=== PATIENT | male | born 1985 | race Caucasian/White ===

== ENCOUNTER 2018-08-20 09:34 | Inpatient (IN) ==
[2018-08-20] MEDS: Sod Chloride 0.9% Inj 1,000 ML IV.CONT SCH (09:45)
--- NOTE | 2018-08-20 10:13 | CT ---
EXAM DATE: 08/20/2018 10:04 AM EST AGE/SEX: 33 years / Male INDICATIONS: Stroke alert, right facial droop and right upper extremity weakness. CLINICAL DATA: This is the patient's initial encounter. Patient reports that signs and symptoms have been present for 1 day and indicates a pain score of Nonresponsive. MEDICAL/SURGICAL HISTORY: Non-responsive. Non-responsive. RADIATION DOSE: 5635 CTDI (mGy) COMPARISON: [facility] [place], [place] CEREBRAL PERF W CONTRAST W 3D, 08/20/2018. . TECHNIQUE: CT of the head without contrast. Using automated exposure control and adjustment of the mA and/or kV according to patient size, radiation dose was kept as low as reasonably achievable to ob tain optimal diagnostic quality images. DICOM format image data is available electronically for revi ew and comparison. FINDINGS: The patient has fairly well-defined parenchymal edema in the left frontal region consistent with evol ving left MCA stroke. There is no evidence of hemorrhage at present. The contralateral right hemisphe re is grossly intact. The posterior fossa and brainstem structures are unremarkable. Ventricles are s ymmetric and normal. No brain shift is evident. The extracranial structures are benign and intact. CONCLUSION: Evolving edema in the left MCA territory. Report was called by [Jaleesa Penny at 1008 hours ] Electronically signed by: Girish Lazcano MD 08/20/2018 10:12 AM EST
[2018-08-20] MEDS ORDERED: Acetaminophen 325 MG Tablet PO PRN (10:28)
[2018-08-20] MEDS ORDERED: Bisacodyl 10 MG Supp RECTAL PRN (10:28)
--- NOTE | 2018-08-20 10:39 | CT ---
EXAM DATE: 08/20/2018 10:32 AM EST AGE/SEX: 33 years / Male INDICATIONS: Stroke alert, right facial droop and right upper extremity weakness. CLINICAL DATA: This is the patient's initial encounter. Patient reports that signs and symptoms have been present for 1 day and indicates a pain score of Nonresponsive. MEDICAL/SURGICAL HISTORY: Non-responsive. Non-responsive. RADIATION DOSE: 10.12 CTDI (mGy) ; Combined studies [place] [facility] [place] W 3D, 08/20/2018. . TECHNIQUE: Volumetric scanning was performed using a multi-row detector CT scanner during bolus infu yue of 60 ml Visipaque 320 (iodixanol) nonionic water-soluble contrast as a cumulative dose for mul tiple exams. The data was post processed with a variety of visualization algorithms including full volume maximum intensity projection, multi-planar sliding thin slab reformation, curved planar reform ation, and surface rendering techniques. Using automated exposure control and adjustment of the mA a nd/or kV according to patient size, radiation dose was kept as low as reasonably achievable to obtain optimal diagnostic quality images. DICOM format image data is available electronically for review a nd comparison. FINDINGS: Poor quality examination with poor arterial contrast opacification and quantum mottle. The left MCA t runk is intact. Branch vessel abnormalities cannot be excluded. The anterior cerebrals appear patent. CONCLUSION: 1. Poor quality CTA examination. 2. Based upon other factors, the patient would not be a candidate for intra-arterial intervention Electronically signed by: Girish Lazcano MD 08/20/2018 10:37 AM EST
--- NOTE | 2018-08-20 10:41 | XR ---
EXAM DATE: 08/20/2018 10:35 AM EST AGE/SEX: 33 years / Male INDICATIONS: Stroke alert, short of breath, extremity weakness, facial droop CLINICAL DATA: This is the patient's initial encounter. Patient reports that signs and symptoms have been present for 1 day and indicates a pain score of 0/10. MEDICAL/SURGICAL HISTORY: . smoker None. COMPARISON: No prior exams available for comparison. FINDINGS: A single AP view of the chest demonstrates the lungs to be symmetrically aerated without evidence of mass, infiltrate or effusion. The cardiomediastinal contours are unremarkable. Osseous structures a re intact. CONCLUSION: Negative examination. Electronically signed by: Bon Ramires MD 08/20/2018 10:40 AM EST
--- NOTE | 2018-08-20 10:55 | ED ---
HPI General Chief Complaint: Stroke Alert Stated Complaint: Medical Complaint Time Seen by Provider: 08/20/18 09:47 Source: patient and family Mode of arrival: ambulatory Limitations: no limitations History of Present Illness HPI Narrative: Patient is a 33-year-old male, past medical history significant for diabetes and alcohol abuse currently on Antabuse, who presents with complaint of facial droop. He states that yesterday he drank alcohol despite having Antabuse and has had profuse vomiting. At approximately 3 AM he noticed that the right side of his face had a droop and he had decreased dexterity of the fingers in the right hand. This has not changed since. He does not recall any recent trauma. This has never happened before. He also describes slurred speech with some difficulty speaking. Onset (ago): hour(s) Location: Reports speech, right face, dysarthria and right arm History of same: No Severity: moderate Relieving factors: none Exacerbating factors: none Context: Reports sudden onset On Anticoagulants: No Treatments Prior to Arrival: Reports none Related Data Allergies Allergy/AdvReac Type Severity Reaction Status Date / Time No Known Allergies Allergy Verified 08/20/18 09:50 Review of Systems ROS: all other systems reviewed are negative [facility] Medical History Medical History Diabetes (Acute) ETOH abuse (Acute) HTN (hypertension) (Acute) Surgical History Surgical History H/O gastric bypass (Acute) S/P appy (Acute) Social History Social History Substance History: No History of Abuse Second Hand Smoke Exposure: Yes Smoking Status: Current every day smoker Tobacco Type: Cigarettes How Often Do You Have a Drink Containing Alcohol: Monthly or less Recent Travel in [facility] within the Last 8 Weeks: No Recent Out of Country Travel within the Last 8 Weeks: No Immunization History Tetanus Immunization: Unsure Exam Narrative Exam Narrative: GENERAL: Well-appearing male in no acute distress SKIN: Focused skin assessment warm/dry. HEAD: Atraumatic. Normocephalic. EYES: Pupils equal and round. No scleral icterus. No injection or drainage. ENT: No nasal bleeding or discharge. Mucous membranes pink and moist. NECK: Trachea midline. No JVD. CARDIOVASCULAR: Regular rate and rhythm. No murmur appreciated. Intact and equal peripheral pulses. RESPIRATORY: No accessory muscle use. Clear to auscultation. Breath sounds equal bilaterally. GASTROINTESTINAL: Abdomen soft, non-tender, nondistended. Hepatic and splenic margins not palpable. MUSCULOSKELETAL: No obvious deformities. No clubbing. No cyanosis. No edema. NEUROLOGICAL: Awake and alert. Slurred speech. Marked right facial droop with sparing of the forehead and tongue deviation to the right. No pronator drift nor dysmetria. PSYCHIATRIC: Appropriate mood and affect; insight and judgment normal. Course Initial Documented Vital Signs Pulse Oximetry 100 08/20/18 09:42 Last Documented Vital Signs Temperature 98.9 F 08/20/18 10:21 Pulse Rate 96 H 08/20/18 10:16 Respiratory Rate 17 08/20/18 10:16 Blood Pressure 124/68 08/20/18 10:16 Pulse Oximetry 100 08/20/18 10:16 NIH Stroke Scale NIH Stroke Scale Level of Consciousness: 0-Alert Orientation Questions: 0-Answers both correct Responds to Commands: 0-Both tasks correct Gaze Eye Movement: 0-Horizontal movement WNL Visual Arias: 0-No visual field defect Facial Movement: 3-Complete unilateral palsy Motor Functions Arm LEFT: 0-No drift Motor Functions Arm RIGHT: 0-No drift Motor Functions Leg LEFT: 0-No drift Motor Functions Leg RIGHT: 0-No drift Limb Ataxia: 0-No ataxia Sensory Loss: 0-No sensory loss Best Language: 0-Normal Articulation: 1-Mild dysarthia Extinction or Inattention Sensory: 0-Absent Total: 4 Quality Measure Queries Stroke Last date observed well: 08/20/18 Last time observed well: 12:30 Medical Decision Making [facility] Narrative Medical decision making narrative: Patient is a 33-year-old male who presents with complaint of facial droop that he woke up with at 3 AM. Stroke alert was activated did but patient was not a candidate for TPA. Noncon CT of the head did show evolving edema in the left MCA territory concerning for stroke. Further imaging did not reveal anything that IR could retrieve. I spoke extensively with Dr. Hartmann several times regarding this patient who recommended admission as he will likely also need a hypercoagulability workup and echo. I then spoke with Dr. Cobos, hospitalist upper extremity surgeon, who agreed to the admission. Medical Screen Exam Complete: Yes Emergency Medical Condition: Yes Differential Diagnosis Differential Diagnosis: Differential diagnosis includes but is not limited to acute stroke, meningeal encephalitis, dissection. Medical Records Medical records reviewed: Yes I reviewed the patient's medical records. Lab Data Lab Results 08/20/18 08/20/18 Range/Units 09:47 09:52 POC Glucose 222 H (68-110) mg/dl Blood Type O Positive Blood Type Recheck Required Antibody Screen Negative Imaging Data Radiologist's impression: Chest X-Ray 08/20/18 09:52 CONCLUSION: Negative examination. Head CT 08/20/18 09:52 CONCLUSION: Evolving edema in the left MCA territory. Report was called by [Jaleesa Penny at 1008 hours ] Head CTA 08/20/18 09:52 CONCLUSION: 1. Poor quality CTA examination. 2. Based upon other factors, the patient would not be a candidate for intra- arterial intervention ECG Data EKG Prior to Arrival: No Attestation: I personally reviewed and interpreted this ECG as follows: (Sinus rhythm at a rate of [address] or T wave changes.) Discharge Plan Discharge Disposition Patient Disposition: 30 Still Patient Discharge Condition Condition: Stable Discharge Details Diagnosis: Acute ischemic stroke Physicians Team ED Provider: Diamond Penny Primary Care Provider: UNKNOWN, Attending Provider: Idalia Cobos Other Providers: Cindi Hartmann Discharge Interventions Interventions: Vital Signs Last Done: 08/20/18 10:21 Status ED Status: Admitted Patient
--- NOTE | 2018-08-20 11:00 | CT ---
EXAM DATE: 08/20/2018 10:17 AM EST AGE/SEX: 33 years / Male INDICATIONS: Stroke alert, right facial droop and right upper extremity weakness. CLINICAL DATA: This is the patient's initial encounter. Patient reports that signs and symptoms have been present for 1 day and indicates a pain score of Nonresponsive. MEDICAL/SURGICAL HISTORY: Non-responsive. Non-responsive. RADIATION DOSE: 214 CTDI (mGy) COMPARISON: [facility] [place] HEAD W/O CONTRAST, 08/20/2018. . TECHNIQUE: CT of the head after intravenous administration of 40 ml Visipaque 320 (iodixanol) nonio isabella water-soluble contrast as a single exam dose. Using automated exposure control and adjustment of the mA and/or kV according to patient size, radiation dose was kept as low as reasonably achievable to obtain optimal diagnostic quality images. DICOM format image data is available electronically for review and comparison. FINDINGS: 1. CBF (<30%) Volume (ml): 0 2. Perfusion (Tmax>6.0s) Volume (ml): 0 3. Mismatch Volume (ml) (Tmax>6.0 - CBF): 0 CONCLUSION: Physiological brain perfusion parameters with RAPID analysis as above. The decision for consideration of therapy is multi factorial and multi disciplinary relying on subjec tive and objective clinical data. This data is not construed or intended to be the sole determinant of treatment eligibility. Electronically signed by: Girish Lazcano MD 08/20/2018 10:59 AM EST
--- NOTE | 2018-08-20 11:06 | CT ---
EXAM DATE: 08/20/2018 11:01 AM EST AGE/SEX: 33 years / Male INDICATIONS: Stroke alert, right facial droop and right upper extremity. CLINICAL DATA: This is the patient's initial encounter. Patient reports that signs and symptoms have been present for 1 day and indicates a pain score of Nonresponsive. MEDICAL/SURGICAL HISTORY: Non-responsive. Non-responsive. RADIATION DOSE: 10.12 CTDI (mGy) ; Combined studies COMPARISON: No prior exams available for comparison. TECHNIQUE: Volumetric scanning was performed using a multirow detector CT scanner during bolus infus ion of 60 ml Visipaque 320 (iodixanol) nonionic water-soluble contrast as a cumulative dose for mult iple exams. The data was postprocessed with a variety of visualization algorithms including full-vo lume maximum intensity projection, multiplanar sliding thin-slab reformation, curved-planar reformati on, and surface-rendering techniques. Using automated exposure control and adjustment of the mA and/ or kV according to patient size, radiation dose was kept as low as reasonably achievable to obtain op timal diagnostic quality images. DICOM format image data is available electronically for review and comparison. Percent stenosis is calculated using the diameter of the stenotic region over the diameter of the nor mal distal internal carotid artery. FINDINGS: Relatively poor quality CTA with poor bolus timing. Adequate for diagnostic purposes. Aortic Arch: There is a three-vessel origin of the great vessels from the aorta. No evidence of ost ial narrowing Right Carotid: The common carotid artery is intact. The carotid bulb has a normal configuration wit hout ulceration or narrowing. The internal carotid artery lumen is smooth without stenosis. The ext ernal carotid artery is intact. Left Carotid: The common carotid artery is intact. The carotid bulb has a normal configuration with out ulceration or narrowing. The internal carotid artery lumen is smooth without stenosis. The exte rnal carotid artery is intact. Vertebrals: The vertebral arteries have a symmetric diameter. No stenotic lesions are seen. CONCLUSION: Negative CTA Carotid. Electronically signed by: Girish Lazcano MD 08/20/2018 11:04 AM EST
[2018-08-20 11:34] LABS: Hematocrit 42.6 % (39.0-51.0); Hemoglobin 14.3 gm/dL (13.0-17.0); Mean Corpuscular HGB Conc 33.6 % (32.0-36.0); Mean Corpuscular Hemoglobin 28.8 pg (27.0-34.0); Mean Corpuscular Volume 85.8 fL (80.0-100.0); Mean Platelet Volume 6.9 fL (7.0-11.0); Platelet Count 257 th/mm3 (150-450); Red Blood Count 4.97 mil/mm3 (4.50-5.90); Red Cell Distribution Width 15.3 % (11.6-17.2)
[2018-08-20 11:36] LABS: Bilirubin,Urine Negative (Negative); Clarity,Urine Clear (Clear); Color,Urine Straw (Yellw/Straw); Glucose,Urine (UA) 500 or Greater mg/dL (Negative); Leukocyte Esterase,Urine Negative (Negative); Nitrite,Urine Negative (Negative)
[2018-08-20 11:38] LABS: Activated Partial Thrombo Time 25.8 sec (23.4-31.7)
[2018-08-20 11:42] LABS: Amphetamine Screen,Urine Neg (Neg); Barbiturate Screen,Urine Neg (Neg); Cannabinoid Screen,Urine Neg (Neg); Cocaine Screen,Urine Neg (Neg)
[2018-08-20 11:43] LABS: Opiate Screen,Urine Neg (Neg)
[2018-08-20 11:46] LABS: Calcium 9.1 mg/dL (8.5-10.1); Carbon Dioxide 21.2 meq/L (21.0-32.0)
[2018-08-20 12:45] LABS: Free T4 (Free Thyroxine) 1.34 ng/dL (0.76-1.46); Thyroid Stimulating Hormone 0.628 uIU/mL (0.358-3.740)
--- NOTE | 2018-08-20 13:01 | MB ---
cc: Cindi Hartmann MD DATE: 08/20/2018 REASON FOR CONSULTATION: Stroke alert. HISTORY OF PRESENT ILLNESS: This is a 33-year-old male with a medical history of diabetes, alcohol abuse, currently on Antabuse who presented with right-sided deficits; apparently had a little bit of alcohol yesterday his parents confirm and had profuse vomiting; noticed around 3 a.m. that he was having some right-sided facial asymmetry, some decreased dexterity in the right hand and was brought in as a stroke alert. Has undergone testing, was not a candidate for any TPA nor any intervention. Currently, still has dysarthria, facial asymmetry as well as dexterity issues in the right hand. PAST MEDICAL HISTORY: Also possible hypertension. PAST SURGICAL HISTORY: Gastric bypass, appendectomy. SOCIAL HISTORY: Alcohol abuser, smoker of cigarettes every day. MEDICATIONS: The only medicines are Antabuse. PHYSICAL EXAMINATION: VITAL SIGNS: Temperature 98.9, pulse 96, respiratory rate 17, blood pressure 124/68, saturating at 100% on 2 liters. NECK: Supple. No appreciable bruits. HEART: Regular. NEUROLOGIC: He is alert. He is oriented. His speech is dysarthric. Pupils are reactive. Visual villela seem full. His face is asymmetric. There is a right facial droop. He does have minor weakness in the right arm, mostly proximally at the hand. Dexterity is decreased, as well as random alternating movements. No significant leg lag. Sensory is normal. Toes withdraw. DTRs are 1+. Gait is withheld at this time. LABORATORY DATA: UDS is negative. Urine is unremarkable. Chemistries: Creatinine 1.44, GFR is 57, glucose 256, calcium normal at 9.1. Protime and PTT normal. CBC: White count 14. RADIOLOGIC STUDIES: 1. CT of the head already shows a left MCA infarct. 2. CTA of the carotids were unremarkable; [place], did not see any large vessel occlusion. IMPRESSION: Left middle cerebral artery territorial infarction in a 33-year-old male. PLAN: Recommend getting a lipid panel, if not done so. Check a hemoglobin A1c. Start him on a full dose aspirin. PT, OT, speech therapy evaluation and rehab consult; 2D echo, hypercoagulable labs, thyroid panel and permissible hypertension for the next 24 hours. Bed rest today; start PT tomorrow morning and further recommendations will be made accordingly. Also put him on subcutaneous heparin and/or subcu Lovenox for DVT prophylaxis. MD MARICRUZ Palomino/chance , 12:08 PM , 12:15 PM
[2018-08-20 13:37] LABS: Hemoglobin A1c 8.9 % (4.3-6.0)
[2018-08-20] MEDS ORDERED: Dextrose 50% in Water 50 ML Vial IV.PUSH PRN (15:41)
--- NOTE | 2018-08-20 15:41 | P.HP ---
History of Present Illness Service: Hospitalist Primary Care Physician: UNKNOWN Chief Complaint: Slurred speech History of Present Illness: Mr. Foster is a pleasant left-handed 33-year-old male with a history of diabetes mellitus, hypertension, alcohol abuse currently on Antabuse who presents to the emergency department due to facial droop that was noted by his family members. Patient had some drinks last night and subsequently he had significant nausea, vomiting and he fell. Around 3:30 AM, family members noted slurred speech and facial droop. They attributed his symptoms to alcohol consumption. However, this morning his symptoms continued to worsen which led them to seek medical attention. In addition to facial droop and slurred speech , patient also complained of right upper extremity weakness. Patient denies any chest pain, shortness of breath, fever or chills. No abdominal pain, nausea or vomiting. Past medical history: Diabetes mellitus, hypertension, alcohol abuse Past surgical history: Gastric bypass and appendectomy Social history: Patient drinks daily. Denies using illicit drugs. He smokes half a pack a day. Family history: No family history of premature coronary artery disease, stroke, cancer. Inpatient Certification: I certify that the inpatient services were ordered in accordance with Medicare regulations governing the order. This includes certification that hospital inpatient services are reasonable and necessary and in the case of services not specified as inpatient-only under 42 CFR 419.22(n), that they are appropriately provided as inpatient services in accordance to with the 2-midnight benchmark under 43 CFR 412.3(e) Estimated Total Length of Stay (Days): 3 Plans for Post Hospital Care: Home Review of Systems All other systems reviewed negative except as stated in HPI [facility] - History History Provided By: Patient - Medical History Medical History: Medical History (Last Reviewed 08/20/18 @ 16:40 by Idalia Cobos DO) Diabetes ETOH abuse HTN (hypertension) - Surgical History Surgical History: Surgical History (Last Reviewed 08/20/18 @ 16:40 by Idalia Cobos DO) H/O gastric bypass S/P appy - Tobacco History Second Hand Smoke Exposure: Yes Tobacco Use In Past 30 Days: Yes Smoking Status: Current every day smoker Tobacco Type: Cigarettes - Alcohol History How Often Do You Have a Drink Containing Alcohol: Monthly or less - Substance Use History Substance History: No History of Abuse - Travel History Recent Travel in the [facility] Within the Last 8 Weeks: No Recent Travel Out of the Country Within the Last 8 Weeks: No - Immunization History Tetanus Immunization: Unsure Medications and Allergies Active Medications: Active Medications Acetaminophen (Tylenol) 650 mg PO Q4H PRN PRN Reason: Headache, fever, pain 1-4 Al Hydroxide/Mg Hydroxide (Milk Of Magnesia Liq) 30 ml PO Q12H PRN PRN Reason: Mild Constipation Aspirin (Ecotrin) 325 mg PO DAILY MELISSA Bisacodyl (Dulcolax Supp) 10 mg RECTAL DAILY PRN PRN Reason: SEVERE CONSITIPATION Sodium Chloride (Ns Inj) 1,000 mls @ 70 mls/hr IV.CONT .[id number] MELISSA Last Admin: 08/20/18 09:45 Dose: 70 mls/hr Lactulose (Lactulose Liq) 30 ml PO DAILY PRN PRN Reason: SEVERE CONSITIPATION Ondansetron HCl (Zofran Inj) 4 mg IV.PUSH Q6H PRN PRN Reason: NAUSEA OR VOMITING Sennosides (Senokot) 17.2 mg PO Q12H PRN PRN Reason: Moderate Constipation Allergies Allergy/AdvReac Type Severity Reaction Status Date / Time No Known Allergies Allergy Verified 08/20/18 09:50 Home Medications Medication Instructions Recorded Confirmed Type buspirone 5 mg PO BID 08/20/18 08/20/18 History ertugliflozin [Steglatro] 5 mg PO QAM 08/20/18 08/20/18 History hydralazine 25 mg PO DAILY 08/20/18 08/20/18 History lisinopril 10 mg PO DAILY 08/20/18 08/20/18 History metformin 1,000 mg PO DAILY 08/20/18 08/20/18 History rosuvastatin 5 mg PO DAILY 08/20/18 08/20/18 History sitagliptin [Januvia] 100 mg PO DAILY 08/20/18 08/20/18 History Exam Vital signs: Vital Signs 08/20/18 09:42 08/20/18 09:53 08/20/18 10:16 Temperature Pulse Rate 96 H Respiratory Rate 17 Blood Pressure 124/68 Pulse Oximetry 100 100 100 08/20/18 10:21 08/20/18 12:40 Temperature 98.9 F Pulse Rate 94 H Respiratory Rate 19 Blood Pressure 126/61 Pulse Oximetry 97 Intake & Output 08/19/18 08/20/18 08/20/18 18:59 06:59 18:59 Weight 87.3 kg Narrative: GENERAL: This is a well-nourished, well-developed patient, in no apparent distress. SKIN: No rashes, ecchymoses or lesions. Warm and dry. HEAD: Atraumatic. Normocephalic. No temporal or scalp tenderness. EYES: Pupils equal round and reactive. No injection or drainage. ENT: Nose without bleeding, purulent drainage or septal hematoma. Airway patent. NECK: Trachea midline. No lymphadenopathy. Supple, nontender, no meningeal signs. CARDIOVASCULAR: Regular rate and rhythm without murmurs, gallops, or rubs. No JVD. RESPIRATORY: Clear to auscultation. Breath sounds equal bilaterally. No wheezes , rales, or rhonchi. GASTROINTESTINAL: Abdomen soft, non-tender, nondistended. No guarding. MUSCULOSKELETAL: Extremities without clubbing, cyanosis, or edema. NEUROLOGICAL: Awake and alert. Slurred speech. Significant right sided facial droop. Right upper ext is 3+/5, left upper ext 5/5. Lower ext strength equal and intact. Results - Labs CBC & Chem 7: 08/20/18 09:52 08/21/18 04:59 Labs: Laboratory Results - last 24 hr 08/20/18 08/20/18 08/20/18 09:47 09:52 09:52 WBC 14.0 H RBC 4.97 Hgb 14.3 POC Hgb (Calc) Hct 42.6 POC Hct MCV 85.8 MCH 28.8 MCHC 33.6 RDW 15.3 Plt Count 257 MPV 6.9 L PT INR APTT POC Sodium Sodium POC Potassium Potassium POC Chloride Chloride Carbon Dioxide Anion Gap POC BUN BUN Creatinine POC Creatinine Estimated GFR POC Glucose 222 H Random Glucose Calcium Vitamin B12 TSH Free T4 Urine Color Urine Clarity Urine pH Ur Specific Hope Urine Protein Urine Glucose (UA) Urine Ketones Urine Occult Blood Urine Nitrate Urine Bilirubin Urine Urobilinogen Ur Leukocyte Esterase Urine RBC Urine WBC Micro UA Comment Ur Microscopic Review Urine Culture Comments Urine Opiates Screen Ur Barbiturates Screen Ur Amphetamines Screen U Benzodiazepines Scrn Urine Cocaine Screen U Cannabinoids Screen Blood Type O Positive Blood Type Recheck Required Antibody Screen Negative 08/20/18 08/20/18 08/20/18 09:52 09:52 09:52 WBC RBC Hgb POC Hgb (Calc) 15.0 Hct POC Hct 44.0 MCV MCH MCHC RDW Plt Count MPV PT 10.0 INR 1.0 APTT 25.8 POC Sodium 137 Sodium 136 POC Potassium 5.0 Potassium 5.0 POC Chloride 101 L Chloride 104 Carbon Dioxide 21.2 Anion Gap 11 POC BUN 18 BUN 18 Creatinine 1.44 H POC Creatinine 1.0 Estimated GFR 57 L POC Glucose 256 H Random Glucose 259 H Calcium 9.1 Vitamin B12 TSH Free T4 Urine Color Urine Clarity Urine pH Ur Specific Hope Urine Protein Urine Glucose (UA) Urine Ketones Urine Occult Blood Urine Nitrate Urine Bilirubin Urine Urobilinogen Ur Leukocyte Esterase Urine RBC Urine WBC Micro UA Comment Ur Microscopic Review Urine Culture Comments Urine Opiates Screen Ur Barbiturates Screen Ur Amphetamines Screen U Benzodiazepines Scrn Urine Cocaine Screen U Cannabinoids Screen Blood Type Blood Type Recheck Antibody Screen 08/20/18 08/20/18 08/20/18 09:52 11:15 11:15 WBC RBC Hgb POC Hgb (Calc) Hct POC Hct MCV MCH MCHC RDW Plt Count MPV PT INR APTT POC Sodium Sodium POC Potassium Potassium POC Chloride Chloride Carbon Dioxide Anion Gap POC BUN BUN Creatinine POC Creatinine Estimated GFR POC Glucose Random Glucose Calcium Vitamin B12 722 TSH 0.628 Free T4 1.34 Urine Color Straw Urine Clarity Clear Urine pH 5.0 Ur Specific Hope 1.030 Urine Protein Negative Urine Glucose (UA) 500 or greater Urine Ketones Negative Urine Occult Blood Negative Urine Nitrate Negative Urine Bilirubin Negative Urine Urobilinogen Less than 2 Ur Leukocyte Esterase Negative Urine RBC Less than 1 Urine WBC 1 Micro UA Comment Cath-culture not ind Ur Microscopic Review Not Reportable Urine Culture Comments Cath-cult not ind Urine Opiates Screen Neg Ur Barbiturates Screen Neg Ur Amphetamines Screen Neg U Benzodiazepines Scrn Neg Urine Cocaine Screen Neg U Cannabinoids Screen Neg Blood Type Blood Type Recheck Antibody Screen - Imaging Impressions Chest X-Ray 08/20/18 09:52 CONCLUSION: Negative examination. Head CT 08/20/18 09:52 CONCLUSION: Evolving edema in the left MCA territory. Report was called by [Jaleesa Penny at 1008 hours ] Head CTA 08/20/18 09:52 CONCLUSION: 1. Poor quality CTA examination. 2. Based upon other factors, the patient would not be a candidate for intra- arterial intervention Neck CTA 08/20/18 09:52 CONCLUSION: Negative CTA Carotid. CT CAD 08/20/18 09:53 CONCLUSION: Physiological brain perfusion parameters with RAPID analysis as above. The decision for consideration of therapy is multi factorial and multi disciplinary relying on subjective and objective clinical data. This data is not construed or intended to be the sole determinant of treatment eligibility. Caprini VTE Risk Assessment Caprini VTE Risk Assessment: No/Low Risk (score <= 1) Caprini Risk Assessment Model: Point Value = 1 Point Value = 2 Point Value = 3 Point Value = 5 Age 41-60 Minor surgery BMI > 25 kg/m2 Swollen legs Varicose veins or History of unexplained or recurrent spontaneous Oral contraceptives or hormone replacement Sepsis (< 1 month) Serious lung disease, including pneumonia (< 1 month) Abnormal pulmonary function Acute myocardial infarction Congestive heart failure (< 1 month) History of inflammatory bowel disease Medical patient at bed rest Age 61-74 Arthroscopic surgery Major open surgery (> 45 min) Laparoscopic surgery (> 45 min) Malignancy Confined to bed (> 72 hours) Immobilizing plaster cast Central venous access Age >= 75 History of VTE Family history of VTE Factor V Leiden Prothrombin [id number] Lupus anticoagulant Anticardiolipin antibodies Elevated serum homocysteine Heparin-induced thrombocytopenia Other congenital or acquired thrombophilia Stroke (< 1 month) Elective arthroplasty Hip, pelvis, or leg fracture Acute spinal cord injury (< 1 month) Prophylaxis Regimen: Total Risk Factor Score Risk Level Prophylaxis Regimen 0-1 Low Early ambulation 2 Moderate Order ONE of the following: *Sequential Compression Device (SCD) *Heparin 5000 units SQ BID 3-4 Higher Order ONE of the following medications: *Heparin 5000 units SQ TID *Enoxaparin/Lovenox 40 mg SQ daily (WT < 150 kg, CrCl > 30 mL/min) *Enoxaparin/Lovenox 30 mg SQ daily (WT < 150 kg, CrCl > 10-29 mL/min) *Enoxaparin/Lovenox 30 mg SQ BID (WT < 150 kg, CrCl > 30 mL/min) AND/OR *Sequential Compression Device (SCD) 5 or more Highest Order ONE of the following medications: *Heparin 5000 units SQ TID (Preferred with Epidurals) *Enoxaparin/Lovenox 40 mg SQ daily (WT < 150 kg, CrCl > 30 mL/min) *Enoxaparin/Lovenox 30 mg SQ daily (WT < 150 kg, CrCl > 10-29 mL/min) *Enoxaparin/Lovenox 30 mg SQ BID (WT < 150 kg, CrCl > 30 mL/min) AND *Sequential Compression Device (SCD) Assessment and Plan - Plan Mr. Foster is a pleasant 33 year old male with a history of DM, HTN, alcohol abuse who presented to the ED due to slurred speech, facial droop and right arm weakness. Initially family members attributed his symptoms to alcohol use last night. However, this morning he had persistent symptoms which led to this ED visit. Acute left MCA stroke -Neurology evaluated patient. MRI pending -Echo unremarkable. EF 55-60%. Continue IV fluid, aspirin. -Hypercoagulable work up in progress. -However, patient has multiple risk factors for stroke including uncontrolled DM , HTN -Will check Lipid panel. Will benefit from statin. Diabetes mellitus -Start Levemir 7 units QHS, sliding scale insulin. -May need pre-meal insulin as well. Titrate as needed. -HbA1c was apparently 8.1 recently per patient's father. Hypertension -Will continue permissive hypertension upto 220/110 -If needed, we can consider ARB for BP control starting tomorrow 08/21/2018. Tobacco abuse Alcohol abuse -Patient is counseled. Full code. SCDs. Pharmacological DVT Prophylaxis when okay with Neurology.
--- NOTE | 2018-08-20 15:44 | ECHRPT ---
Indication: CVA/TIA CONCLUSIONS The left ventricular systolic function is normal with an estimated ejection fraction in the range of 55-60%. Left ventricular diastolic function parameters are normal. Trace mitral valve regurgitation. There is trace tricuspid valve regurgitation. BP: / HR: Rhythm: MEASUREMENTS (Male / Female) Normal Values Technical Quality:Technically difficult study 2D ECHO LV Diastolic Diameter PLAX 4.1 cm 4.2 - 5.9 / 3.9 - 5.3 cm LV Systolic Diameter PLAX 2.5 cm IVS Diastolic Thickness 1.1 cm 0.6 - 1.0 / 0.6 - 0.9 cm LVPW Diastolic Thickness 1.0 cm 0.6 - 1.0 / 0.6 - 0.9 cm LV Relative Wall Thickness 0.5 RV Internal Dim ED PLAX 2.9 cm LVOT Diameter 2.1 cm Aortic Root Diameter 3.2 cm LA Systolic Diameter LX 2.7 cm 3.0 - 4.0 / 2.7 - 3.8 cm DOPPLER AV Peak Velocity 114.0 cm/s AV Peak Gradient 5.2 mmHg LVOT Peak Velocity 108.0 cm/s LVOT Peak Gradient 4.7 mmHg AV Area Cont Eq pk 3.3 cm Mitral E Point Velocity 78.0 cm/s Mitral A Point Velocity 82.4 cm/s Mitral E to A Ratio 0.9 LV E' Lateral Velocity 17.9 cm/s Mitral E to LV E' Lateral Ratio 4.4 LV E' Septal Velocity 11.4 cm/s Mitral E to LV E' Septal Ratio 6.8 TR Peak Velocity 235.0 cm/s TR Peak Gradient 22.1 mmHg Right Atrial Pressure 10.0 mmHg Pulmonary Artery Systolic Pressu 32.1 mmHg Right Ventricular Systolic Press 32.1 mmHg PV Peak Velocity 107.0 cm/s PV Peak Gradient 4.6 mmHg FINDINGS LEFT VENTRICLE Normal left ventricular size. Wall thickness is normal. The left ventricular systolic function is normal with an estimated ejection fraction in the range of 55-60%. Left ventricular diastolic function parameters are normal. No regional wall motion abnormalities are present. RIGHT VENTRICLE Normal right ventricular size and systolic function. LEFT ATRIUM The left atrial size is normal. RIGHT ATRIUM The right atrial size is normal. ATRIAL SEPTUM Normal atrial septal thickness without atrial level shunting by limited color doppler interrogation. AORTA The aortic root and proximal ascending aorta are normal in size on limited imaging. MITRAL VALVE Structurally normal mitral valve. No mitral valve stenosis. Trace mitral valve regurgitation. AORTIC VALVE Trileaflet aortic valve. No aortic valve stenosis or regurgitation. TRICUSPID VALVE Structurally normal tricuspid valve. There is trace tricuspid valve regurgitation. The estimated pulmonary arterial pressure is 32 mmHg. PULMONARY VALVE No pulmonary valve regurgitation or stenosis. VESSELS The inferior vena cava is normal in size. PERICARDIUM No pericardial effusion. Mikey Flores DO (Electronically Signed) Final Date:20 August 2018 15:43
--- NOTE | 2018-08-20 16:14 | MR ---
EXAM DATE: 08/20/2018 4:09 PM EST AGE/SEX: 33 years / Male INDICATIONS: Right sided weakness. CLINICAL DATA: This is the patient's initial encounter. Patient reports that signs and symptoms have been present for 1 day and indicates a pain score of 0/10. MEDICAL/SURGICAL HISTORY: Hypertension. Diabetes mellitus type II. Appendectomy. Gastric bypa ss. [place] [facility] [place] W 3D, 08/20/2018. . TECHNIQUE: Multiplanar, multisequence examination of the brain was performed without contrast. FINDINGS: There are areas of early subacute cortical infarction involving the posterior left frontal region and the posterior left low to mid convexity watershed region. There is moderate susceptibility in the le ft frontal region which likely indicates developing petechial hemorrhage, less pronounced similar fin dings in the posterior infarction. No evidence of macroscopic hemorrhage. No evidence of brain mass. No evidence of shift or significant mass effect. Ventricles are symmetric and normal. The right hemis phere, posterior fossa and brainstem structures are unremarkable. Extracranial structures are benign and intact. CONCLUSION: Areas of subacute infarction in the left posterior frontal and parieto-occipital regions with develop ing petechial hemorrhage Electronically signed by: Girish Lazcano MD 08/20/2018 4:13 PM EST
[2018-08-20] MEDS: Insulin NovoLOG Aspart Correctional Sugar Inj SQ SCH ×2 (16:44→22:00)
--- NOTE | 2018-08-20 17:23 | OTSOAPIP ---
RECEIVED OCCUPATIONAL THERAPY ORDERS. ATTEMPTED TO SEE PATIENT, HOWEVER HE WAS OFF FLOOR FOR MRI. HE IS CURRENTLY ON BED REST ORDERS. WILL REATTEMPT NEXT DAY. Therapist: Isabella Galeano, OTR/L Signature on file
[2018-08-20] MEDS ORDERED: Influenza (Quadrivalent) Vaccine 0.5 ML Syringe IM ONE (20:00)
[2018-08-20] MEDS: Insulin Detemir Inj 1,000 UNIT/10 ML Vial SQ SCH (21:59)
[2018-08-21] MEDS: Sod Chloride 0.9% Inj 1,000 ML IV.CONT SCH (01:12)
[2018-08-21 06:06] LABS: Alanine Aminotransferase 16 U/L (12-78); Alkaline Phosphatase 88 U/L (45-117); Anion Gap 6 meq/L (5-15); Aspartate Aminotransferase 13 U/L (15-37); Blood Urea Nitrogen 13 mg/dL (7-18); Calcium 8.1 mg/dL (8.5-10.1); Carbon Dioxide 24.7 meq/L (21.0-32.0); Chloride 108 meq/L (98-107); Chol/HDL Ratio 3.49 Ratio; Cholesterol 124 mg/dL (120-200); Glomerular Filtration Rate Greater Than 89 mL/min (>89); Glucose,Random 148 mg/dL (74-106); HDL Cholesterol 35.5 mg/dL (40.0-60.0); LDL Cholesterol,Calculated 76 mg/dL (0-99); Potassium 3.9 meq/L (3.5-5.1); Sodium 139 meq/L (136-145); Total Protein 6.1 g/dL (6.4-8.2); Triglycerides 63 mg/dL (42-150)
--- NOTE | 2018-08-21 06:34 | ECG ---
Date Performed: 08/20/2018 Time Performed: 10:50:26 PTAGE: 33 years EKG: Sinus rhythm NORMAL ECG NO PREVIOUS TRACING DOCTOR: Konrad Wright Interpretating Date/Time 08/21/2018 06:33:49
[2018-08-21] MEDS: Insulin NovoLOG Aspart Correctional Sugar Inj SQ SCH ×4 (08:52→21:22)
[2018-08-21 10:52] LABS: Hemoglobin A1c 8.9 % (4.3-6.0)
--- NOTE | 2018-08-21 18:44 | P.PN ---
Subjective Interval history: Follow up on patient with left MCA CVA. Patient seen and examined. Patient says he is doing ok. He reports some blurry vision. He denies any fever or chills. He denies any chest pain or dyspnea. He reports good strength but decreased dexterity in the right hand. Physical Exam Vital signs: Vital Signs 08/20/18 20:00 08/21/18 00:00 08/21/18 04:00 Temperature 98.9 F 99.0 F 98.7 F Pulse Rate 90 92 H 85 Respiratory Rate 20 20 20 Blood Pressure 118/58 L 123/59 L 128/66 Pulse Oximetry 96 95 95 08/21/18 08:00 08/21/18 08:52 08/21/18 12:00 Temperature 98.4 F 98.9 F Pulse Rate 93 H 97 H Respiratory Rate 18 13 Blood Pressure 119/72 129/80 Pulse Oximetry 95 97 96 08/21/18 16:00 08/21/18 17:52 Temperature 98.3 F Pulse Rate 70 Respiratory Rate 12 Blood Pressure 129/73 Pulse Oximetry 97 97 Intake & Output 08/20/18 08/21/18 08/21/18 18:59 06:59 18:59 Intake Total 1000 / 1000 1000 / 1000 Balance 1000 / 1000 1000 / 1000 Weight 185 kg 86.1 kg Intake: IV 1000 / 1000 1000 / 1000 NS Inj 1,000 ML @ 100 mls/hr IV 1000 / 1000 1000 / 1000 .CONT .Q10H MELISSA Rx#:[id number] Other: # Voids 2 4 Date of Last Bowel Movement 08/21/18 # Bowel Movements 1 Weight On Admission 83.915 kg Narrative: GENERAL: This is a well-nourished, well-developed young male patient, in no apparent distress. Awake and alert. +Right side facial droop. SKIN: Warm and dry. No rash. HEENT: Atraumatic. Normocephalic. EOMI. No sclera icterus. No nasal draining. Airway patent. NECK: Trachea midline. CARDIOVASCULAR: Regular rate and rhythm without murmurs, gallops, or rubs. RESPIRATORY: Clear to auscultation. Breath sounds equal bilaterally. No wheezes , rales, or rhonchi. GASTROINTESTINAL: Abdomen soft, non-tender, nondistended. No guarding. MUSCULOSKELETAL: Extremities without clubbing, cyanosis, or edema. NEUROLOGICAL: Awake and alert. Slightly slurred speech. Significant right sided facial droop. Right upper ext is 4+/5, left upper ext 5/5. Slightly weakened right roofing apprentice strength. Unable to actively extend fingers of right hand. Bilateral lower extremity strength intact. PSYCHIATRIC: Calm and cooperative. Results - Labs CBC & Chem 7: 08/20/18 09:52 08/21/18 04:59 Laboratory Results - last 24 hr 08/20/18 08/21/18 08/21/18 21:41 04:59 04:59 Sodium 139 Potassium 3.9 D Chloride 108 H Carbon Dioxide 24.7 Anion Gap 6 BUN 13 Creatinine 0.75 Estimated GFR Greater than 89 POC Glucose 150 H Random Glucose 148 H D Hemoglobin A1c 8.9 H Calcium 8.1 L D Total Bilirubin 0.5 AST 13 L ALT 16 Alkaline Phosphatase 88 Total Protein 6.1 L Albumin 3.0 L Triglycerides 63 Cholesterol 124 LDL Cholesterol, Calc 76 HDL Cholesterol 35.5 L Cholesterol/HDL Ratio 3.49 08/21/18 08/21/18 08/21/18 07:56 11:28 16:42 Sodium Potassium Chloride Carbon Dioxide Anion Gap BUN Creatinine Estimated GFR POC Glucose 159 H 143 H 138 H Random Glucose Hemoglobin A1c Calcium Total Bilirubin AST ALT Alkaline Phosphatase Total Protein Albumin Triglycerides Cholesterol LDL Cholesterol, Calc HDL Cholesterol Cholesterol/HDL Ratio Assessment and Plan - Plan Mr. Foster is a pleasant 33 year old male with a history of DM, HTN, alcohol abuse who presented to the ED due to slurred speech, facial droop and right arm weakness. Initially family members attributed his symptoms to alcohol use last night. However, this morning he had persistent symptoms which led to this ED visit. Acute left MCA stroke MRI brain areas of subacute infarction in the left posterior frontal and parieto -occipital regions with developing petechial hemorrhage -Neurology evaluated patient. Discussed MRI findings - change from full dose to low dose Aspirin -Echo unremarkable. EF 55-60%. Continue IV fluid, aspirin. -Hypercoagulable work up in progress. -However, patient has multiple risk factors for stroke including uncontrolled DM , HTN and he is a smoker -Will check Lipid panel. Will benefit from statin. -consult rehab medicine -consult stroke navigator -consult Neuropsychologist, appreciate assistance Diabetes mellitus A1c 8.9 -Started on Levemir 7 units QHS, continue. BS running in mid 100s. -continue on sliding scale insulin. -May need pre-meal insulin as well. Titrate as needed. -HbA1c was apparently 8.1 recently per patient's father. Hypertension BP well controlled off of meds -Continue to monitor BP -If needed, we can consider ARB for BP control Tobacco abuse Alcohol abuse -Patient is counseled. DVT prophylaxis -Chemical prophylaxis contraindicated with petechial hemorrhages -bilateral SCD/CASSIDY woody
[2018-08-21] MEDS: Insulin Detemir Inj 1,000 UNIT/10 ML Vial SQ SCH (21:22)
[2018-08-22 03:51] LABS: Dil Russell Viper Venom Conf ( ND (NEGATIVE); Dil Russell Viper Venom Time M ND (CORRECTED); Lupus Anticoagulant PTT Screen 33 seconds (< OR = 40)
[2018-08-22] MEDS: Insulin NovoLOG Aspart Correctional Sugar Inj SQ SCH ×2 (09:36→13:04)
[2018-08-22] MEDS ORDERED: Sodium Chloride 0.9% 2 ML Flush PRN IV.FLUSH (09:53)
[2018-08-22 13:51] LABS: Homocysteine (Cardiovascular) 5.6 umol/L (<11.4)
--- NOTE | 2018-08-22 16:33 | P.DS ---
Date of admission: 08/20/18 10:26 Primary care physician: UNKNOWN Attending physician on discharge: Will Umana Anticipated date of discharge: 08/22/18 Brief History from admission: Mr. Foster is a pleasant left-handed 33-year-old male with a history of diabetes mellitus, hypertension, alcohol abuse currently on Antabuse who presents to the emergency department due to facial droop that was noted by his family members. Patient had some drinks last night and subsequently he had significant nausea, vomiting and he fell. Around 3:30 AM, family members noted slurred speech and facial droop. They attributed his symptoms to alcohol consumption. However, this morning his symptoms continued to worsen which led them to seek medical attention. In addition to facial droop and slurred speech , patient also complained of right upper extremity weakness. Patient denies any chest pain, shortness of breath, fever or chills. No abdominal pain, nausea or vomiting. Past medical history: Diabetes mellitus, hypertension, alcohol abuse Past surgical history: Gastric bypass and appendectomy Social history: Patient drinks daily. Denies using illicit drugs. He smokes half a pack a day. Family history: No family history of premature coronary artery disease, stroke, cancer. Patient update on day of discharge: Patient seen and examined. Patient says he is doing well. He still has some difficulty with swallowing saying he "has to think about it". He says the right hand is about the same. He denies any headache, dizziness, fever, chills , cough, chest pain, N/V, abdominal pain or shortness of breath. DS: Diagnosis - Discharge Diagnosis (1) Acute ischemic stroke Status: Acute (2) Hypertension Status: Chronic (3) Diabetes Status: Chronic (4) Alcohol abuse Status: Chronic DS: Medications - Discharge Medications Prescriptions: aspirin 81 mg PO DAILY #30 tab DS: Summary Hospital Course: Patient admitted with right sided facial droop and decreased dexterity in the fingers of the right hand. Imaging revealed and left subacute infarction in the left posterior frontal and parieto-occipital regions with developing petechial hemorrhage. He was seen in consultation by Neurology. Patient found to have poorly controlled DM with A1c of 8.9. Patient was started on Levemir 7u daily. Echo was unremarkable, EF 55-60%. He was seen in consultation by PT/ OT/ST. He was placed on mechanical soft diet. Patient was seen in consultation by rehab medicine and accepted to [facility] for inpatient rehabilitation. - Time Spent with Patient Total time spent providing and/or coordinating discharge services: Greater than 30 minutes - Quality: Stroke Last date observed well: 08/20/18 Last time observed well: 12:30 - Quality: VTE Deep Vein Thrombosis/Pulmonary Embolism Present on Admission: No Exam Vital signs: Vital Signs 08/21/18 17:52 08/21/18 20:00 08/22/18 00:00 Temperature 99.5 F 98.5 F Pulse Rate 81 79 Respiratory Rate 20 20 Blood Pressure 128/77 134/81 Pulse Oximetry 97 96 95 08/22/18 04:00 08/22/18 08:00 08/22/18 11:00 Temperature 98.5 F 97.8 F Pulse Rate 79 69 Respiratory Rate 20 16 Blood Pressure 129/74 128/88 Pulse Oximetry 96 95 96 08/22/18 12:00 Temperature 97.9 F Pulse Rate 76 Respiratory Rate 14 Blood Pressure 123/84 Pulse Oximetry 96 Intake & Output 08/21/18 08/22/18 08/22/18 18:59 06:59 18:59 Intake Total 1000 / 1000 Balance 1000 / 1000 Weight 82.5 kg Intake: IV 1000 / 1000 NS Inj 1,000 ML @ 100 mls/hr IV 1000 / 1000 .CONT .Q10H [facility] Rx#:[id number] Other: # Voids 4 2 Date of Last Bowel Movement 08/21/18 # Bowel Movements 1 Narrative: GENERAL: This is a well-nourished, well-developed young male patient, in no apparent distress. Awake and alert. +Right side facial droop, slightly improved. SKIN: Warm and dry. No rash. HEENT: Atraumatic. Normocephalic. EOMI. No sclera icterus. No nasal draining. Airway patent. NECK: Trachea midline. CARDIOVASCULAR: Regular rate and rhythm without murmurs, gallops, or rubs. RESPIRATORY: Clear to auscultation. Breath sounds equal bilaterally. No wheezes , rales, or rhonchi. GASTROINTESTINAL: Abdomen soft, non-tender, nondistended. No guarding. MUSCULOSKELETAL: Extremities without clubbing, cyanosis, or edema. NEUROLOGICAL: Awake and alert. Slightly slurred speech. Significant right sided facial droop. Right upper ext is 4+/5, left upper ext 5/5. Slightly weakened right display coordinator strength. Slight contracture noted of digits on right hand. Unable to actively extend fingers of right hand. Bilateral lower extremity strength intact. PSYCHIATRIC: Calm and cooperative. Appropriate mood and affect. Results Procedures completed during hospitalization: None Labs on day of discharge: Labs from last 24 hours 08/22/18 08/22/18 08/21/18 12:49 08:10 21:13 Thrombin Time Lupus Anticoagulant LA PTT Screen dRVVT Screen LA dRVVT Confirm dRVVT Mix Hexagonal Phase Confirm Antithrombin III Activ POC Glucose 118 H 124 H 156 H Hemoglobin A1c Homocysteine Cardiovas Prothrombin [id number] Mut 08/21/18 08/21/18 08/20/18 16:42 04:59 12:40 Thrombin Time ND Lupus Anticoagulant LA PTT Screen 33 dRVVT Screen 45 LA dRVVT Confirm ND dRVVT Mix ND Hexagonal Phase Confirm ND Antithrombin III Activ 91 POC Glucose 138 H Hemoglobin A1c 8.9 H Homocysteine Cardiovas 5.6 Prothrombin [id number] Mut - Impressions ITS Impressions Chest X-Ray 08/20/18 09:52 CONCLUSION: Negative examination. Head CT 08/20/18 09:52 CONCLUSION: Evolving edema in the left MCA territory. Report was called by [Jaleesa Penny at 1008 hours ] Head CTA 08/20/18 09:52 CONCLUSION: 1. Poor quality CTA examination. 2. Based upon other factors, the patient would not be a candidate for intra- arterial intervention Neck CTA 08/20/18 09:52 CONCLUSION: Negative CTA Carotid. CT CAD 08/20/18 09:53 CONCLUSION: Physiological brain perfusion parameters with RAPID analysis as above. The decision for consideration of therapy is multi factorial and multi disciplinary relying on subjective and objective clinical data. This data is not construed or intended to be the sole determinant of treatment eligibility. Head MRI 08/20/18 12:03 CONCLUSION: Areas of subacute infarction in the left posterior frontal and parieto- occipital regions with developing petechial hemorrhage Discharge Plan - Discharge Disposition Patient Disposition: 62 Rehab Inpatient - Discharge Condition Condition: Stable - Discharge Order Discharge Orders: Discharge Order (Routine); Ordered 08/22/18 Ordered By: Ev Braun - Discharge Details Anticipated Discharge Date: 08/22/18 Discharge Comment: Discharge pending acceptance to [facility] Physicians Team Primary Care Provider: UNKNOWN, Attending Provider: Will Umana Other Providers: Cindi Hartmann MD ; Jackie Gautiher MD ; Christiano Moore, PhD
[2018-08-22 17:53] LABS: Factor V Leiden Mutation Negative (Negative); Protein C Antigen 61 % (70-150)
[2018-08-22] MEDS ORDERED: Sodium Chloride 0.9% 2 ML Flush BID IV.FLUSH SCH (21:00)
[2018-08-23 03:52] LABS: Activated Protein C Resistance 5.3 ratio (> OR = 2.1)
== END 2018-08-22 15:26 ==
LOC: NEPE 09:34 → NEDA 10:26 → N05 15:46
PROVIDERS: ADMIT Internal Medicine; ATTEND Internal Medicine

== ENCOUNTER 2018-11-06 14:32 | Observation (INO) ==
[2018-11-06] MEDS ORDERED: Haloperidol Inj 5 MG/ML Ampul IV.PUSH PRN ×2 (15:06→21:00)
[2018-11-06] MEDS ORDERED: LORazepam 1 MG Tablet PO PRN (15:06)
[2018-11-06 15:27] LABS: Baso # (Auto) 0.1 th/mm3 (0.0-0.2); Baso % (Auto) 2.3 % (0.0-2.0); Eos # (Auto) 0.1 th/mm3 (0.0-0.4); Eos % (Auto) 1.9 % (0.0-4.0); Hematocrit 42.9 % (39.0-51.0); Hemoglobin 14.4 gm/dL (13.0-17.0); Lymph # (Auto) 2.1 th/mm3 (1.0-4.8); Lymph % (Auto) 41.5 % (9.0-44.0); Mean Corpuscular HGB Conc 33.7 % (32.0-36.0); Mean Corpuscular Hemoglobin 29.7 pg (27.0-34.0); Mean Corpuscular Volume 88.2 fL (80.0-100.0); Mean Platelet Volume 6.5 fL (7.0-11.0); Mono # (Auto) 0.5 th/mm3 (0.0-0.9); Mono % (Auto) 9.3 % (0.0-8.0); Neut # (Auto) 2.3 th/mm3 (1.8-7.7); Platelet Count 332 th/mm3 (150-450); Red Blood Count 4.86 mil/mm3 (4.50-5.90); Red Cell Distribution Width 17.9 % (11.6-17.2); White Blood Count 5.1 th/mm3 (4.0-11.0)
--- NOTE | 2018-11-06 15:30 | ED ---
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 She states last drink was about an hour ago. He states that he is currently living with his parents while he is trying to quit drinking. He states that he is intending an outpatient rehab. He states that he has been sneaking out nightly and drinking hand grinding wheel operator. On presentation he denies headache, dizziness, vision changes, chest pain, palpitations, shortness of breath, abdominal pain, nausea, vomiting, weakness of the extremities. He states his blood glucose was around 120 this morning. He denies illicit drug use. He denies suicidal or homicidal ideation. Related Data Previous Rx's Medication Instructions Recorded aspirin 81 mg PO DAILY #30 tab 08/29/18 atorvastatin [Lipitor] 10 mg PO DAILY #30 tab 08/29/18 buspirone 5 mg PO BID #60 tab 08/29/18 metformin 1,000 mg PO DAILY #30 tab 08/29/18 sennosides-docusate sodium [Senna 1 tab PO BID #60 tab 08/29/18 Plus] Allergies Allergy/AdvReac Type Severity Reaction Status Date / Time No Known Allergies Allergy Verified 11/06/18 14:46 Review of Systems ROS: all other systems reviewed are negative [facility] Medical History Medical History CVA (cerebrovascular accident due to intracerebral hemorrhage) (Acute) Diabetes (Acute) ETOH abuse (Acute) HTN (hypertension) (Acute) Right hemiparesis (Acute) Surgical History Surgical History H/O gastric bypass (Acute) S/P appy (Acute) Family History Family History Father Unknown family medical history Mother Heart disease Grandparent Diabetes Uncle Diabetes Social History Social History Substance History: No History of Abuse Second Hand Smoke Exposure: No Smoking Status: Never smoker Tobacco Type: Cigarettes Cigarettes Per Day: 5 Number of Pack-Years (if former smoker): 15 Smoking End Date: Smoking until admission to hospital How Often Do You Have a Drink Containing Alcohol: 2 to 3 times a week Hx Recent Travel: No Recent Travel in [facility] within the Last 8 Weeks: No Recent Out of Country Travel within the Last 8 Weeks: No Immunization History Tetanus Immunization: Unsure Exam Narrative Exam Narrative: GENERAL: Well-nourished, well-developed, nontoxic-appearing male in no acute distress. SKIN: Focused skin assessment warm/dry. HEAD: Atraumatic. Normocephalic. EYES: Pupils equal and round. No scleral icterus. No injection or drainage. ENT: No nasal bleeding or discharge. Mucous membranes pink and moist. NECK: Trachea midline. No JVD. CARDIOVASCULAR: Regular rate and rhythm. No murmur appreciated. RESPIRATORY: No accessory muscle use. Clear to auscultation. Breath sounds equal bilaterally. GASTROINTESTINAL: Abdomen soft, non-tender, nondistended. Hepatic and splenic margins not palpable. MUSCULOSKELETAL: No obvious deformities. No clubbing. No cyanosis. No edema. NEUROLOGICAL: Awake and alert. No obvious cranial nerve deficits. Motor grossly within normal limits. Normal speech. PSYCHIATRIC: Appropriate mood and affect; insight and judgment normal. 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 He states last drink was about an hour ago. Patient is afebrile, heart rate 121, BP 130/76 on arrival. On evaluation he is tearful, has no somatic complaints. He denies SI or HI, states that he was drinking in an attempt to get drunk. Poison control was contacted. IV was established. Patient was administered 2 L normal saline, placed on CIWA protocol. CBC unremarkable. INR 1.0. CMP shows sodium 147, anion gap 10, glucose 143, calcium 8.0, lactic acid 3.5. Patient was administered an additional liter normal saline. Recheck lactic acid 3.3. Poison control recommends recheck BNP. Blood gas shows pH of 7.45, PCO2 34, HCO3 23. Due to ongoing lactic acidosis plan to admit.This is the second time the patient has presented with this problem. Although he denies SI and HI I feel a psych screen is warranted. This order was placed. Patient is agreeable to this plan. I spoke with Dr. Mirza who agrees to accept the patient to the medicine service. Please see medicine notes for disposition. Medical Screen Exam Complete: Yes Emergency Medical Condition: Yes Differential Diagnosis Differential Diagnosis: Alcohol abuse versus metabolic derangement versus overdose versus other Lab Data Result diagrams: 11/06/18 15:07 11/06/18 18:32 Lab Results 11/06/18 11/06/18 11/06/18 Range/Units 14:56 15:07 15:07 WBC 5.1 (4.0-11.0) th/mm3 RBC 4.86 (4.50-5.90) mil/mm3 Hgb 14.4 (13.0-17.0) gm/dL Hct 42.9 (39.0-51.0) % MCV 88.2 (80.0-100.0) fL MCH 29.7 (27.0-34.0) pg MCHC 33.7 (32.0-36.0) % RDW 17.9 H (11.6-17.2) % Plt Count 332 (150-450) th/mm3 MPV 6.5 L (7.0-11.0) fL Neut % (Auto) 45.0 (16.0-70.0) % Lymph % (Auto) 41.5 (9.0-44.0) % Bennett % (Auto) 9.3 H (0.0-8.0) % Eos % (Auto) 1.9 (0.0-4.0) % Baso % (Auto) 2.3 H (0.0-2.0) % Neut # (Auto) 2.3 (1.8-7.7) th/mm3 Lymph # (Auto) 2.1 (1.0-4.8) th/mm3 Bennett # (Auto) 0.5 (0.0-0.9) th/mm3 Eos # (Auto) 0.1 (0.0-0.4) th/mm3 Baso # (Auto) 0.1 (0.0-0.2) th/mm3 WBC Differential . Differential Comment Auto diff final PT 10.0 (9.8-11.6) sec INR 1.0 Ratio APTT 26.1 (23.4-31.7) sec Puncture Site Patient Temperature O2 Saturation (90-100) % ABG pH (7.380-7.420) ABG pCO2 (38-42) mmHg ABG pO2 (61-120) mmHg ABG HCO3 (22-26) mmol/L ABG O2 Content (12.0-20.0) Vol % ABG Base Excess (-2-2) mmol/L ABG Methemoglobin (0-2) % Jacinto Test Hemoglobin (12.0-16.0) G/DL Carboxyhemoglobin (0-4) % Inspired O2 % Critical Value Sodium 147 H (136-145) meq/L Potassium 3.7 (3.5-5.1) meq/L Chloride 109 H (98-107) meq/L Carbon Dioxide 28.2 (21.0-32.0) meq/L Anion Gap 10 (5-15) meq/L BUN 4 L (7-18) mg/dL Creatinine 0.73 (0.60-1.30) mg/dL Estimated GFR Greater than 89 (>89) mL/min Random Glucose 143 H (74-106) mg/dL Lactic Acid (0.4-2.0) mmol/L Calcium 8.0 L (8.5-10.1) mg/dL Calcium Adj for Albumin (8.5-10.1) mg/dL Magnesium 2.1 (1.5-2.5) mg/dL Total Bilirubin 0.2 (0.2-1.0) mg/dL AST 36 (15-37) U/L ALT 57 (12-78) U/L Alkaline Phosphatase 118 H (45-117) U/L Total Protein 7.7 (6.4-8.2) g/dL Albumin 4.0 (3.4-5.0) g/dL TSH 0.777 (0.358-3.740) uIU/mL Urine Color (Yellw/Straw) Urine Clarity (Clear) Urine pH (5.0-8.5) Ur Specific [place] (1.002-1.035) Urine Protein (Neg-Trace) mg/dL Urine Glucose (UA) (Negative) mg/dL Urine Ketones (Negative) mg/dL Urine Occult Blood (Negative) Urine Nitrate (Negative) Urine Bilirubin (Negative) Urine Urobilinogen (Less than 2) mg/dL Ur Leukocyte Esterase (Negative) Urine RBC (0-3) /hpf Urine WBC (0-5) /hpf Micro UA Comment Ur Microscopic Review Urine Culture Comments Salicylates (2.8-20.0) mg/dL Urine Opiates Screen (Neg) Acetaminophen Less than 2.0 L (10.0-30.0) mcg/mL Ur Barbiturates Screen (Neg) Ur Amphetamines Screen (Neg) U Benzodiazepines Scrn (Neg) Urine Cocaine Screen (Neg) U Cannabinoids Screen (Neg) Serum Alcohol 380 H (0-5) mg/dL 11/06/18 11/06/18 11/06/18 Range/Units 15:07 15:11 15:12 WBC (4.0-11.0) th/mm3 RBC (4.50-5.90) mil/mm3 Hgb (13.0-17.0) gm/dL Hct (39.0-51.0) % MCV (80.0-100.0) fL MCH (27.0-34.0) pg MCHC (32.0-36.0) % RDW (11.6-17.2) % Plt Count (150-450) th/mm3 MPV (7.0-11.0) fL Neut % (Auto) (16.0-70.0) % Lymph % (Auto) (9.0-44.0) % Bennett % (Auto) (0.0-8.0) % Eos % (Auto) (0.0-4.0) % Baso % (Auto) (0.0-2.0) % Neut # (Auto) (1.8-7.7) th/mm3 Lymph # (Auto) (1.0-4.8) th/mm3 Bennett # (Auto) (0.0-0.9) th/mm3 Eos # (Auto) (0.0-0.4) th/mm3 Baso # (Auto) (0.0-0.2) th/mm3 WBC Differential Differential Comment PT (9.8-11.6) sec INR Ratio APTT (23.4-31.7) sec Puncture Site Patient Temperature O2 Saturation (90-100) % ABG pH (7.380-7.420) ABG pCO2 (38-42) mmHg ABG pO2 (61-120) mmHg ABG HCO3 (22-26) mmol/L ABG O2 Content (12.0-20.0) Vol % ABG Base Excess (-2-2) mmol/L ABG Methemoglobin (0-2) % Jacinto Test Hemoglobin (12.0-16.0) G/DL Carboxyhemoglobin (0-4) % Inspired O2 % Critical Value Sodium (136-145) meq/L Potassium (3.5-5.1) meq/L Chloride (98-107) meq/L Carbon Dioxide (21.0-32.0) meq/L Anion Gap (5-15) meq/L BUN (7-18) mg/dL Creatinine (0.60-1.30) mg/dL Estimated GFR (>89) mL/min Random Glucose (74-106) mg/dL Lactic Acid 3.5 H (0.4-2.0) mmol/L Calcium (8.5-10.1) mg/dL Calcium Adj for Albumin (8.5-10.1) mg/dL Magnesium (1.5-2.5) mg/dL Total Bilirubin (0.2-1.0) mg/dL AST (15-37) U/L ALT (12-78) U/L Alkaline Phosphatase (45-117) U/L Total Protein (6.4-8.2) g/dL Albumin (3.4-5.0) g/dL TSH (0.358-3.740) uIU/mL Urine Color (Yellw/Straw) Urine Clarity (Clear) Urine pH (5.0-8.5) Ur Specific [place] (1.002-1.035) Urine Protein (Neg-Trace) mg/dL Urine Glucose (UA) (Negative) mg/dL Urine Ketones (Negative) mg/dL Urine Occult Blood (Negative) Urine Nitrate (Negative) Urine Bilirubin (Negative) Urine Urobilinogen (Less than 2) mg/dL Ur Leukocyte Esterase (Negative) Urine RBC (0-3) /hpf Urine WBC (0-5) /hpf Micro UA Comment Ur Microscopic Review Urine Culture Comments Salicylates Less than 1.7 L (2.8-20.0) mg/dL Urine Opiates Screen Neg (Neg) Acetaminophen (10.0-30.0) mcg/mL Ur Barbiturates Screen Neg (Neg) Ur Amphetamines Screen Neg (Neg) U Benzodiazepines Scrn Neg (Neg) Urine Cocaine Screen Neg (Neg) U Cannabinoids Screen Neg (Neg) Serum Alcohol (0-5) mg/dL 11/06/18 11/06/18 11/06/18 Range/Units 15:12 17:37 18:32 WBC (4.0-11.0) th/mm3 RBC (4.50-5.90) mil/mm3 Hgb (13.0-17.0) gm/dL Hct (39.0-51.0) % MCV (80.0-100.0) fL MCH (27.0-34.0) pg MCHC (32.0-36.0) % RDW (11.6-17.2) % Plt Count (150-450) th/mm3 MPV (7.0-11.0) fL Neut % (Auto) (16.0-70.0) % Lymph % (Auto) (9.0-44.0) % Bennett % (Auto) (0.0-8.0) % Eos % (Auto) (0.0-4.0) % Baso % (Auto) (0.0-2.0) % Neut # (Auto) (1.8-7.7) th/mm3 Lymph # (Auto) (1.0-4.8) th/mm3 Bennett # (Auto) (0.0-0.9) th/mm3 Eos # (Auto) (0.0-0.4) th/mm3 Baso # (Auto) (0.0-0.2) th/mm3 WBC Differential Differential Comment PT (9.8-11.6) sec INR Ratio APTT (23.4-31.7) sec Puncture Site Patient Temperature O2 Saturation (90-100) % ABG pH (7.380-7.420) ABG pCO2 (38-42) mmHg ABG pO2 (61-120) mmHg ABG HCO3 (22-26) mmol/L ABG O2 Content (12.0-20.0) Vol % ABG Base Excess (-2-2) mmol/L ABG Methemoglobin (0-2) % Jacinto Test Hemoglobin (12.0-16.0) G/DL Carboxyhemoglobin (0-4) % Inspired O2 % Critical Value Sodium 148 H (136-145) meq/L Potassium 3.5 (3.5-5.1) meq/L Chloride 113 H (98-107) meq/L Carbon Dioxide 25.3 (21.0-32.0) meq/L Anion Gap 10 (5-15) meq/L BUN 3 L (7-18) mg/dL Creatinine 0.60 (0.60-1.30) mg/dL Estimated GFR Greater than 89 (>89) mL/min Random Glucose 123 H (74-106) mg/dL Lactic Acid 3.3 H (0.4-2.0) mmol/L Calcium 7.4 L* (8.5-10.1) mg/dL Calcium Adj for Albumin 7.9 L (8.5-10.1) mg/dL Magnesium (1.5-2.5) mg/dL Total Bilirubin 0.2 (0.2-1.0) mg/dL AST 24 (15-37) U/L ALT 44 (12-78) U/L Alkaline Phosphatase 98 (45-117) U/L Total Protein 6.4 D (6.4-8.2) g/dL Albumin 3.4 D (3.4-5.0) g/dL TSH (0.358-3.740) uIU/mL Urine Color Colorless (Yellw/Straw) Urine Clarity Clear (Clear) Urine pH 6.0 (5.0-8.5) Ur Specific [place] 1.003 (1.002-1.035) Urine Protein Negative (Neg-Trace) mg/dL Urine Glucose (UA) Negative (Negative) mg/dL Urine Ketones Negative (Negative) mg/dL Urine Occult Blood Negative (Negative) Urine Nitrate Negative (Negative) Urine Bilirubin Negative (Negative) Urine Urobilinogen Less than 2 (Less than 2) mg/dL Ur Leukocyte Esterase Negative (Negative) Urine RBC Less than 1 (0-3) /hpf Urine WBC Less than 1 (0-5) /hpf Micro UA Comment Culture not ind Ur Microscopic Review Not Reportable Urine Culture Comments Culture not ind Salicylates (2.8-20.0) mg/dL Urine Opiates Screen (Neg) Acetaminophen (10.0-30.0) mcg/mL Ur Barbiturates Screen (Neg) Ur Amphetamines Screen (Neg) U Benzodiazepines Scrn (Neg) Urine Cocaine Screen (Neg) U Cannabinoids Screen (Neg) Serum Alcohol (0-5) mg/dL 11/06/18 Range/Units 18:34 WBC (4.0-11.0) th/mm3 RBC (4.50-5.90) mil/mm3 Hgb (13.0-17.0) gm/dL Hct (39.0-51.0) % MCV (80.0-100.0) fL MCH (27.0-34.0) pg MCHC (32.0-36.0) % RDW (11.6-17.2) % Plt Count (150-450) th/mm3 MPV (7.0-11.0) fL Neut % (Auto) (16.0-70.0) % Lymph % (Auto) (9.0-44.0) % Bennett % (Auto) (0.0-8.0) % Eos % (Auto) (0.0-4.0) % Baso % (Auto) (0.0-2.0) % Neut # (Auto) (1.8-7.7) th/mm3 Lymph # (Auto) (1.0-4.8) th/mm3 Bennett # (Auto) (0.0-0.9) th/mm3 Eos # (Auto) (0.0-0.4) th/mm3 Baso # (Auto) (0.0-0.2) th/mm3 WBC Differential Differential Comment PT (9.8-11.6) sec INR Ratio APTT (23.4-31.7) sec Puncture Site Right radial Patient Temperature 98.6 O2 Saturation 95 (90-100) % ABG pH 7.45 H (7.380-7.420) ABG pCO2 34 L (38-42) mmHg ABG pO2 93 (61-120) mmHg ABG HCO3 23 (22-26) mmol/L ABG O2 Content 16.2 (12.0-20.0) Vol % ABG Base Excess -0.1 (-2-2) mmol/L ABG Methemoglobin 0.8 (0-2) % Jacinto Test Present Hemoglobin 12.1 (12.0-16.0) G/DL Carboxyhemoglobin 1.3 (0-4) % Inspired O2 21 % Critical Value No Sodium (136-145) meq/L Potassium (3.5-5.1) meq/L Chloride (98-107) meq/L Carbon Dioxide (21.0-32.0) meq/L Anion Gap (5-15) meq/L BUN (7-18) mg/dL Creatinine (0.60-1.30) mg/dL Estimated GFR (>89) mL/min Random Glucose (74-106) mg/dL Lactic Acid (0.4-2.0) mmol/L Calcium (8.5-10.1) mg/dL Calcium Adj for Albumin (8.5-10.1) mg/dL Magnesium (1.5-2.5) mg/dL Total Bilirubin (0.2-1.0) mg/dL AST (15-37) U/L ALT (12-78) U/L Alkaline Phosphatase (45-117) U/L Total Protein (6.4-8.2) g/dL Albumin (3.4-5.0) g/dL TSH (0.358-3.740) uIU/mL Urine Color (Yellw/Straw) Urine Clarity (Clear) Urine pH (5.0-8.5) Ur Specific [place] (1.002-1.035) Urine Protein (Neg-Trace) mg/dL Urine Glucose (UA) (Negative) mg/dL Urine Ketones (Negative) mg/dL Urine Occult Blood (Negative) Urine Nitrate (Negative) Urine Bilirubin (Negative) Urine Urobilinogen (Less than 2) mg/dL Ur Leukocyte Esterase (Negative) Urine RBC (0-3) /hpf Urine WBC (0-5) /hpf Micro UA Comment Ur Microscopic Review Urine Culture Comments Salicylates (2.8-20.0) mg/dL Urine Opiates Screen (Neg) Acetaminophen (10.0-30.0) mcg/mL Ur Barbiturates Screen (Neg) Ur Amphetamines Screen (Neg) U Benzodiazepines Scrn (Neg) Urine Cocaine Screen (Neg) U Cannabinoids Screen (Neg) Serum Alcohol (0-5) mg/dL Discharge Plan Discharge Disposition Patient Disposition: ED Admit(ED Internal Use Only) Discharge Condition Condition: Stable Discharge Order Discharge Orders: ED Use Only Admit Order (Routine); Ordered 11/06/18 Ordered By: Judy Mcgowan Discharge Details Diagnosis: Alcohol abuse Physicians Team ED Provider: Sona Stone ED Midlevel Provider: Judy Mcgowan Primary Care Provider: Primary Care Aleksandra Shaw Attending Provider: Sona Mirza Status ED Status: Admitted Observation Patient
[2018-11-06 15:33] LABS: Amphetamine Screen,Urine Neg (Neg); Barbiturate Screen,Urine Neg (Neg); Cannabinoid Screen,Urine Neg (Neg); Cocaine Screen,Urine Neg (Neg)
[2018-11-06 15:37] LABS: Opiate Screen,Urine Neg (Neg)
[2018-11-06 15:44] LABS: Anion Gap 10 meq/L (5-15); Aspartate Aminotransferase 36 U/L (15-37); Blood Urea Nitrogen 4 mg/dL (7-18); Carbon Dioxide 28.2 meq/L (21.0-32.0); Chloride 109 meq/L (98-107); Glomerular Filtration Rate Greater Than 89 mL/min (>89); Glucose,Random 143 mg/dL (74-106); Magnesium 2.1 mg/dL (1.5-2.5); Potassium 3.7 meq/L (3.5-5.1); Sodium 147 meq/L (136-145)
[2018-11-06 15:52] LABS: Alanine Aminotransferase 57 U/L (12-78); Alkaline Phosphatase 118 U/L (45-117); Thyroid Stimulating Hormone 0.777 uIU/mL (0.358-3.740); Total Protein 7.7 g/dL (6.4-8.2)
[2018-11-06 15:54] LABS: Activated Partial Thrombo Time 26.1 sec (23.4-31.7)
[2018-11-06 15:54] LABS: Alcohol 380 mg/dL (0-5)
[2018-11-06] MEDS ORDERED: Sod Chloride 0.9% Inj 2,000 ML IV.SIG ONE (16:01)
[2018-11-06 18:08] LABS: Bilirubin,Urine Negative (Negative); Clarity,Urine Clear (Clear); Color,Urine Colorless (Yellw/Straw); Glucose,Urine (UA) Negative (Negative); Leukocyte Esterase,Urine Negative (Negative); Nitrite,Urine Negative (Negative); Specific Gravity,Urine 1.003 (1.002-1.035)
[2018-11-06] MEDS ORDERED: Sod Chloride 0.9% Inj 1,000 ML IV.SIG ONE (18:18)
[2018-11-06 18:43] LABS: ABG Base Excess -0.1 mmol/L (-2-2); ABG PCO2 34 mmHg (38-42); ABG PO2 93 mmHg (61-120)
[2018-11-06 19:31] LABS: Alanine Aminotransferase 44 U/L (12-78); Albumin 3.4 g/dL (3.4-5.0); Alkaline Phosphatase 98 U/L (45-117); Anion Gap 10 meq/L (5-15); Aspartate Aminotransferase 24 U/L (15-37); Blood Urea Nitrogen 3 mg/dL (7-18); Calcium 7.4 mg/dL (8.5-10.1); Carbon Dioxide 25.3 meq/L (21.0-32.0); Chloride 113 meq/L (98-107); Glomerular Filtration Rate Greater Than 89 mL/min (>89); Glucose,Random 123 mg/dL (74-106); Potassium 3.5 meq/L (3.5-5.1); Sodium 148 meq/L (136-145); Total Protein 6.4 g/dL (6.4-8.2)
[2018-11-06] MEDS ORDERED: Bisacodyl 10 MG Supp RECTAL PRN (20:06)
[2018-11-06] MEDS ORDERED: Dextrose 50% in Water 50 ML Vial IV.PUSH PRN (20:06)
--- NOTE | 2018-11-06 20:16 | P.HPIM ---
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 The patient has been drinking hand senior search marketing analyst steadily since August 26. On 10/01/18 he was hospitalized in delay and where he was admitted to the ICU and underwent dialysis x2 for acidosis. He was discharged to home a few days later and resumed drinking hand senior search marketing analyst. He reports drinking approximately 8-12 ounces daily. Serum alcohol is 380. Gap 10 lactic acid elevated at 3.5. The patient reports severe depression but denies any current suicidal ideation. He denies any chest pain or shortness of breath. No abdominal pain. No nausea/vomiting/ diarrhea. No fever/chills. Review of Systems Review of Systems: all other systems reviewed are negative [facility] Medical History Medical History CVA (cerebrovascular accident due to intracerebral hemorrhage) (Acute) Diabetes (Acute) ETOH abuse (Acute) HTN (hypertension) (Acute) Right hemiparesis (Acute) Surgical History Surgical History H/O gastric bypass (Acute) S/P appy (Acute) Family History Family History Father Unknown family medical history Mother Heart disease Grandparent Diabetes Uncle Diabetes Social History Social History Substance History: No History of Abuse Second Hand Smoke Exposure: No Smoking Status: Never smoker Tobacco Type: Cigarettes Cigarettes Per Day: 5 Number of Pack-Years (if former smoker): 15 Smoking End Date: Smoking until admission to hospital How Often Do You Have a Drink Containing Alcohol: 2 to 3 times a week Hx Recent Travel: No Recent Travel in [facility] within the Last 8 Weeks: No Recent Out of Country Travel within the Last 8 Weeks: No Immunization History Tetanus Immunization: Unsure Medications and Allergies Allergies Allergy/AdvReac Type Severity Reaction Status Date / Time No Known Allergies Allergy Verified 11/06/18 14:46 Active Medications: Active Medications Haloperidol Lactate (Haldol Inj) 1 mg IV.PUSH Q15M PRN PRN Reason: for severe agitation Lorazepam (Ativan Inj) 1 mg IV.PUSH Q4H PRN PRN Reason: for CIWA 8-10 Lorazepam (Ativan Inj) 2 mg IV.PUSH Q15M PRN PRN Reason: for CIWA > 20 Lorazepam (Ativan Inj) 2 mg IV.PUSH Q1H PRN PRN Reason: for CIWA 15-20 Lorazepam (Ativan Inj) 2 mg IV.PUSH Q2H PRN PRN Reason: for CIWA 11-14 Lorazepam (Ativan) 1 mg PO Q4H PRN PRN Reason: for CIWA 8-10 Lorazepam (Ativan) 2 mg PO Q2H PRN PRN Reason: for CIWA 11-14 Physical Exam Vital signs: Vital Signs 11/06/18 14:47 11/06/18 16:07 11/06/18 18:23 Temperature 98.3 F Pulse Rate 121 H 110 H 100 H Respiratory Rate 18 20 24 Blood Pressure 130/76 133/82 129/77 Pulse Oximetry 98 98 98 11/06/18 20:00 11/06/18 20:04 Temperature Pulse Rate 93 H Respiratory Rate 16 Blood Pressure 139/79 Pulse Oximetry 96 98 Intake & Output 11/06/18 11/06/18 11/07/18 06:59 18:59 06:59 Intake Total 1999 1000 / 1000 Output Total 1000 / 1000 Balance 1000 / 1000 1000 / 1000 Weight 79.379 kg Intake: IV 1999 1000 / 1000 NS Inj 1,000 ML @ Wide Open IV. 1999 1000 / 1000 SIG BOLUS ONE Rx#:[id number] Output: Urine 1000 / 1000 Narrative: Gen.: No acute distress, patient is tearful but cooperative Head: Normocephalic. Atraumatic. EENT: Pupils equal round and reactive to light. Nose without drainage. Airway intact. Throat without injection. Cardiovascular: Regular rate and rhythm. No murmurs, rubs or gallops. Respiratory: Lungs clear to auscultation bilaterally. No wheezes or rhonchi. Abdomen: Soft, nontender, nondistended. No peritoneal signs. Musculoskeletal: No gross deformities. No edema. Skin: No obvious rashes or erythema. Neuro: Residual right-sided facial droop and weakness that is baseline. Alert and oriented x4. Results Labs CBC & Chem 7: 11/06/18 15:07 11/06/18 18:32 Caprini VTE Risk Assessment Caprini VTE Risk Assessment: No/Low Risk (score <= 1) Caprini Risk Assessment Model: Point Value = 1 Point Value = 2 Point Value = 3 Point Value = 5 Age 41-60 Minor surgery BMI > 25 kg/m2 Swollen legs Varicose veins or History of unexplained or recurrent spontaneous Oral contraceptives or hormone replacement Sepsis (< 1 month) Serious lung disease, including pneumonia (< 1 month) Abnormal pulmonary function Acute myocardial infarction Congestive heart failure (< 1 month) History of inflammatory bowel disease Medical patient at bed rest Age 61-74 Arthroscopic surgery Major open surgery (> 45 min) Laparoscopic surgery (> 45 min) Malignancy Confined to bed (> 72 hours) Immobilizing plaster cast Central venous access Age >= 75 History of VTE Family history of VTE Factor V Leiden Prothrombin [id number] Lupus anticoagulant Anticardiolipin antibodies Elevated serum homocysteine Heparin-induced thrombocytopenia Other congenital or acquired thrombophilia Stroke (< 1 month) Elective arthroplasty Hip, pelvis, or leg fracture Acute spinal cord injury (< 1 month) Prophylaxis Regimen: Total Risk Factor Score Risk Level Prophylaxis Regimen 0-1 Low Early ambulation 2 Moderate Order ONE of the following: *Sequential Compression Device (SCD) *Heparin 5000 units SQ BID 3-4 Higher Order ONE of the following medications: *Heparin 5000 units SQ TID *Enoxaparin/Lovenox 40 mg SQ daily (WT < 150 kg, CrCl > 30 mL/min) *Enoxaparin/Lovenox 30 mg SQ daily (WT < 150 kg, CrCl > 10-29 mL/min) *Enoxaparin/Lovenox 30 mg SQ BID (WT < 150 kg, CrCl > 30 mL/min) AND/OR *Sequential Compression Device (SCD) 5 or more Highest Order ONE of the following medications: *Heparin 5000 units SQ TID (Preferred with Epidurals) *Enoxaparin/Lovenox 40 mg SQ daily (WT < 150 kg, CrCl > 30 mL/min) *Enoxaparin/Lovenox 30 mg SQ daily (WT < 150 kg, CrCl > 10-29 mL/min) *Enoxaparin/Lovenox 30 mg SQ BID (WT < 150 kg, CrCl > 30 mL/min) AND *Sequential Compression Device (SCD) Assessment and Plan Plan Assessment/plan: 1. Intentional ingestion of hand senior search marketing analyst Poison control contacted, recommend repeat BMP in 6 hours. If within normal limits repeat BMP in 12 hours. If anion gap is elevated trend BMPs every 6 hours Repeat ABG in 6 hours Monitor on telemetry Lactic acid elevated at 3.5, IV fluid hydration and repeat 2. Alcohol abuse Patient and his family have made arrangements for inpatient treatment following his discharge. [facility] protocol Monitor for signs of withdrawal 3. Depression Psychiatry consulted to assist with initial assessment and outpatient recommendations 4. Diabetes mellitus Holding home Lantus Sliding-scale insulin Monitor blood glucose FEN Regular diet Electrolytes: Monitor NS at 125 cc/hour
[2018-11-06] MEDS: Sod Chloride 0.9% Inj 1,000 ML IV.CONT SCH (20:56)
[2018-11-06] MEDS: Folic Acid 1 MG Tablet PO SCH (20:56)
[2018-11-06] MEDS: Multivitamin/Minerals Therapeutic Tablet PO SCH (21:52)
[2018-11-06] MEDS: Senna/Docusate Sodium 8.6/50 MG Tablet PO SCH (21:54)
[2018-11-06] MEDS: Insulin NovoLOG Aspart Correctional Sugar Inj SQ SCH (23:04)
[2018-11-06] MEDS: LORazepam 1 MG Tablet PO PRN (23:22)
[2018-11-07 00:26] LABS: ABG Base Excess -1.2 mmol/L (-2-2); ABG PCO2 30 mmHg (38-42); ABG PO2 146 mmHg (61-120)
[2018-11-07] MEDS: LORazepam 1 MG Tablet PO PRN ×2 (04:00→11:29)
[2018-11-07] MEDS: Insulin NovoLOG Aspart Correctional Sugar Inj SQ SCH ×5 (07:47→21:36)
[2018-11-07] MEDS: Sod Chloride 0.9% Inj 1,000 ML IV.CONT SCH ×3 (07:54→21:37)
[2018-11-07] MEDS: Folic Acid 1 MG Tablet PO SCH (08:52)
[2018-11-07] MEDS: Senna/Docusate Sodium 8.6/50 MG Tablet PO SCH ×2 (08:53→21:00)
[2018-11-07] MEDS: Multivitamin/Minerals Therapeutic Tablet PO SCH (08:53)
--- NOTE | 2018-11-07 09:42 | P.PNIM ---
Subjective Interval history: Follow-up visit ingested [employer]. Patient is resting in bed. Family member at bedside. Patient reports feeling jittery. Denies chest discomfort, shortness of breath, abdominal pain, nausea, vomiting or diarrhea. Physical Exam Vital signs: Vital Signs 11/06/18 14:47 11/06/18 16:07 11/06/18 18:23 Temperature 98.3 F Pulse Rate 121 H 110 H 100 H Respiratory Rate 18 20 24 Blood Pressure 130/76 133/82 129/77 Pulse Oximetry 98 98 98 11/06/18 20:00 11/06/18 20:04 11/06/18 21:22 Temperature 98.9 F Pulse Rate 93 H 84 Respiratory Rate 16 16 Blood Pressure 139/79 133/77 Pulse Oximetry 96 98 99 11/07/18 00:00 11/07/18 04:00 11/07/18 08:00 Temperature 99.1 F 97.2 F L 98.5 F Pulse Rate 81 67 61 Respiratory Rate 16 18 16 Blood Pressure 129/67 134/73 127/82 Pulse Oximetry 98 99 99 Intake & Output 11/06/18 11/07/18 11/07/18 18:59 06:59 18:59 Intake Total 1999 3600 / 3600 Output Total 1000 / 1000 Balance 1000 / 1000 3600 / 3600 Weight 79.379 kg 79.379 kg Intake: IV 1999 NS Inj 1,000 ML @ 125 mls/hr IV 1000 / 1000 .CONT .Q8H MELISSA Rx#:[id number] NS Inj 1,000 ML @ Wide Open IV. 1999 1000 / 1000 SIG BOLUS ONE Rx#:[id number] Oral 1600 / 1600 Output: Urine 1000 / 1000 Other: # Voids 1 Weight On Admission 79.379 kg Narrative: Gen.: No acute distress, AAOx 3, cooperative Head: Normocephalic. Atraumatic. EENT: Pupils equal round and reactive to light. Nose without drainage. Airway intact. Throat without injection. Cardiovascular: Regular rate and rhythm. No murmurs, rubs or gallops. Respiratory: Lungs clear to auscultation bilaterally. No wheezes or rhonchi. Abdomen: Soft, nontender, nondistended. No peritoneal signs. Musculoskeletal: No gross deformities. No edema. Skin: No obvious rashes or erythema. Neuro: Residual right-sided facial droop and weakness that is baseline. Alert and oriented x4. 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 Intentional ingestion of hand manager [employer] -Poison control center contacted -recommend repeat BMP in 6 hours. If within normal limits repeat BMP in 12 hours. If anion gap is elevated trend BMPs every 6 hours -Repeat ABG in 6 hours reviewed -Monitor on telemetry -Lactic acid elevated at 3.3, continue IV fluid hydration and repeat -psych consulted Alcohol abuse -Patient and his family have made arrangements for inpatient treatment following his discharge. -CIWA protocol -Monitor for signs of withdrawal Depression -Psychiatry consulted to assist with initial assessment and outpatient recommendations Diabetes mellitus -Holding home Lantus -Sliding-scale insulin -Monitor blood glucose Hx of CVA with right sided deficit MDM: self Code: Full GI ppx: not indicated DVT ppx: SCD's Discussed with: patient, RN, supervising MD Dispo: d/c home once patient no longer exhibiting signs and symptoms of withdrawal Progress Note: Quality VTE Deep Vein Thrombosis/Pulmonary Embolism Present on Admission: No
[2018-11-07 11:12] LABS: Baso % (Auto) 0.5 % (0.0-2.0); Eos # (Auto) 0.1 th/mm3 (0.0-0.4); Eos % (Auto) 1.9 % (0.0-4.0); Hematocrit 36.6 % (39.0-51.0); Hemoglobin 12.6 gm/dL (13.0-17.0); Lymph % (Auto) 21.9 % (9.0-44.0); Mean Corpuscular HGB Conc 34.4 % (32.0-36.0); Mean Corpuscular Hemoglobin 30.2 pg (27.0-34.0); Mean Corpuscular Volume 87.6 fL (80.0-100.0); Mean Platelet Volume 6.5 fL (7.0-11.0); Mono # (Auto) 0.4 th/mm3 (0.0-0.9); Mono % (Auto) 9.3 % (0.0-8.0); Neut % (Auto) 66.4 % (16.0-70.0); Platelet Count 254 th/mm3 (150-450); Red Blood Count 4.17 mil/mm3 (4.50-5.90); Red Cell Distribution Width 17.7 % (11.6-17.2); White Blood Count 4.5 th/mm3 (4.0-11.0)
[2018-11-07 11:42] LABS: Alanine Aminotransferase 47 U/L (12-78); Albumin 3.2 g/dL (3.4-5.0); Anion Gap 8 meq/L (5-15); Aspartate Aminotransferase 39 U/L (15-37); Blood Urea Nitrogen 3 mg/dL (7-18); Calcium 8.1 mg/dL (8.5-10.1); Carbon Dioxide 27.2 meq/L (21.0-32.0); Chloride 107 meq/L (98-107); Glomerular Filtration Rate Greater Than 89 mL/min (>89); Glucose,Random 209 mg/dL (74-106); Potassium 3.5 meq/L (3.5-5.1); Sodium 142 meq/L (136-145)
[2018-11-07 11:44] LABS: Alkaline Phosphatase 105 U/L (45-117); Total Protein 6.1 g/dL (6.4-8.2)
--- NOTE | 2018-11-07 14:13 | P.CONPSY ---
Provisional Diagnosis Admission Date: November 06, 2018 19:27 [place] Alcohol-induced mood disorder, alcohol use disorder, alcohol withdrawal, history of depression and anxiety History of Present Illness Service: ER Primary Care Provider: No Primary Care Physician History of Present Illness: The patient is a 33-year-old man, domiciled with his parents, single, but in a relationship, unemployed at the moment, with a psychiatric history of anxiety, depression, alcohol use disorder, no previous psychiatric hospitalizations, no previous suicidal attempts, he is in both support 5 mg 3 times daily, hydroxyzine 25 mg 3 times daily as needed anxiety, prescribed by PCP, with a past medical history significant type 2 diabetes mellitus, hypertension, seizures, kidney failure, 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 The patient has been drinking hand marble polisher steadily since August 26. On 10/01/18 he was hospitalized in delay and where he was admitted to the ICU and underwent dialysis x2 for acidosis. He was discharged to home a few days later and resumed drinking hand marble polisher. He reports drinking approximately 8-12 ounces daily. Serum alcohol is 380. Gap 10 lactic acid elevated at 3.5. The patient was consulted to psychiatry to address potential intentional overdose. On my psychiatric evaluation today the patient is accompanied by his mother. The patient is very calm, cooperative and pleasant. The patient reports that he has no overdose with suicidal intentions, that he has been drinking hand marble polisher to replace alcohol. The patient reports that he is an alcoholic. That he has been in several detox in the past, that he has several social problems, he lost his job, he has lost his license due to alcoholism, and his family are controlling extremely his money intake, and alcohol at home. For this reason, he has been drinking hand marble polisher to satisfy his addiction. Patient says that he does not do this to . He says that he has too many reasons to live for that he wants to get better, but, I am and alcohol added and I admitted this. He reports that he is willing to engage in a detox rehab program. He has already been accepted in a detox program in the community. He denies anhedonia, denies hopelessness, denies helplessness, he denies suicidal and homicidal ideation, he denies visual and auditory hallucinations at the moment. He denies symptoms of withdrawal at the moment. PPHX: with a psychiatric history of anxiety, depression, alcohol use disorder, no previous psychiatric hospitalizations, no previous suicidal attempts, he is in both support 5 mg 3 times daily, hydroxyzine 25 mg 3 times daily as needed anxiety, prescribed by PCP caused on 08/24/18 with residual right-sided deficits PMHx: with a past medical history significant type 2 diabetes mellitus, hypertension, kidney failure, history of CVA Family Hx: No family psychiatric history Substance Hx: Reports continues alcohol abuse, he has been hand marble polisher every day for the last 2 months. Has been to multiple detox rehabs in the past. Denies the use of illegal drugs. Social Hx: man, born and raised in [place], domiciled with his parents , single, but in a relationship, unemployed at the moment. Review of Systems All other systems reviewed negative except as stated in HPI Psychiatric: Reports anxiety PMFSH - History History Provided By: Patient - Medical History Medical History: Medical History (Last Reviewed 11/06/18 @ 20:13 by Sona Mirza MD) CVA (cerebrovascular accident due to intracerebral hemorrhage) Diabetes ETOH abuse HTN (hypertension) Right hemiparesis - Surgical History Surgical History: Surgical History (Last Reviewed 11/06/18 @ 20:13 by Sona Mirza MD) H/O gastric bypass S/P appy - Family History Family History: Family History (Last Reviewed 11/06/18 @ 20:13 by Sona Mirza MD) Father Unknown family medical history Mother Heart disease Grandparent Diabetes Uncle Diabetes - Tobacco History Second Hand Smoke Exposure: No Smoking Status: Former smoker Tobacco Type: Cigarettes Cigarettes Per Day: 5 Number of Pack Years (if former smoker): 15 Smoking End Date: Smoking until admission to hospital - Alcohol History How Often Do You Have a Drink Containing Alcohol: 4 or more times a week - Substance Use History Substance History: Active Abuse - Travel History History of Recent Travel: No Recent Travel in the [place] Within the Last 8 Weeks: No Recent Travel Out of the Country Within the Last 8 Weeks: No - Immunization History Tetanus Immunization: Unsure Medications and Allergies Active Medications: Active Medications Al Hydroxide/Mg Hydroxide (Milk Of Magnesia Liq) 30 ml PO Q12H PRN PRN Reason: Mild Constipation Bisacodyl (Dulcolax Supp) 10 mg RECTAL DAILY PRN PRN Reason: SEVERE CONSITIPATION Clonidine HCl (Catapres) 0.1 mg PO Q6H PRN PRN Reason: For SBP >/= 180, DBP >/= 100 Dextrose (D50w Vial) 50 ml IV.PUSH UNSCH PRN PRN Reason: PER HYPOGLYCEMIA PROTOCOL Flumazenil (Romazicon Inj) 0.2 mg IV.PUSH Q1M PRN PRN Reason: OVERSEDATION Folic Acid (Folic Acid) 1 mg PO DAILY MELISSA Stop: 11/11/18 20:14 Last Admin: 11/07/18 08:52 Dose: 1 mg Glucagon (Glucagon Inj) 1 mg OTHER PRN PRN PRN Reason: for Hypoglycemia Protocol Haloperidol Lactate (Haldol Inj) 1 mg IV.PUSH Q15M PRN PRN Reason: for severe agitation Sodium Chloride (Ns Inj) 1,000 mls @ 125 mls/hr IV.CONT .Q8H MELISSA Last Infusion: 11/07/18 08:53 Dose: 125 mls/hr Insulin Aspart (Novolog Insulin Correctional Sugar Inj) 0 unit SQ ACHS AND 3AM MELISSA; Protocol Last Admin: 11/07/18 08:33 Dose: Not Given Lactulose (Lactulose Liq) 30 ml PO DAILY PRN PRN Reason: SEVERE CONSITIPATION Lorazepam (Ativan Inj) 1 mg IV.PUSH Q4H PRN PRN Reason: for CIWA 8-10 Lorazepam (Ativan Inj) 2 mg IV.PUSH Q15M PRN PRN Reason: for CIWA > 20 Lorazepam (Ativan Inj) 2 mg IV.PUSH Q2H PRN PRN Reason: for CIWA 11-14 Lorazepam (Ativan) 1 mg PO Q4H PRN PRN Reason: for CIWA 8-10 Last Admin: 11/07/18 11:29 Dose: 1 mg Lorazepam (Ativan) 2 mg PO Q2H PRN PRN Reason: for CIWA 11-14 Last Admin: 11/07/18 08:53 Dose: 2 mg Lorazepam (Ativan Inj) 2 mg IV.PUSH Q1H PRN PRN Reason: for CIWA 15-20 Multivitamins/Minerals (Theragran-M) 1 tab PO DAILY MELISSA Stop: 11/11/18 20:14 Last Admin: 02/13/19 08:53 Dose: 1 tab Ondansetron HCl (Zofran Inj) 4 mg IV.PUSH Q6H PRN PRN Reason: NAUSEA OR VOMITING Senna/Docusate Sodium (Linda-Colace) 1 tab PO BID [facility] Last Admin: 11/07/18 08:53 Dose: Not Given Sennosides (Senokot) 17.2 mg PO Q12H PRN PRN Reason: Moderate Constipation Sodium Chloride (Ns Flush) 2 ml IV.FLUSH BID [facility] Last Admin: 11/07/18 08:53 Dose: Not Given Sodium Chloride (Ns Flush) 2 ml IV.FLUSH PRN PRN PRN Reason: FLUSH AFTER USING IV ACCESS Thiamine HCl (Vitamin B1) 100 mg PO DAILY [facility] Last Admin: 11/07/18 08:53 Dose: 100 mg Allergies Allergy/AdvReac Type Severity Reaction Status Date / Time No Known Allergies Allergy Verified 11/06/18 14:46 Home Medications Medication Instructions Recorded Confirmed Type hydroxyzine pamoate 25 mg PO DAILY 11/07/18 11/07/18 History levetiracetam [Keppra] 750 mg PO BID 11/07/18 11/07/18 History Exam Vital signs: Vital Signs 11/06/18 14:47 11/06/18 16:07 11/06/18 18:23 Temperature 98.3 F Pulse Rate 121 H 110 H 100 H Respiratory Rate 18 20 24 Blood Pressure 130/76 133/82 129/77 Pulse Oximetry 98 98 98 11/06/18 20:00 11/06/18 20:04 11/06/18 21:22 Temperature 98.9 F Pulse Rate 93 H 84 Respiratory Rate 16 16 Blood Pressure 139/79 133/77 Pulse Oximetry 96 98 99 11/07/18 00:00 11/07/18 04:00 11/07/18 08:00 Temperature 99.1 F 97.2 F L 98.5 F Pulse Rate 81 67 61 Respiratory Rate 16 18 16 Blood Pressure 129/67 134/73 127/82 Pulse Oximetry 98 99 99 11/07/18 12:15 Temperature 98.9 F Pulse Rate 74 Respiratory Rate 16 Blood Pressure 132/83 Pulse Oximetry 99 Intake & Output 11/06/18 11/07/18 11/07/18 18:59 06:59 18:59 Intake Total 1999 3600 / 3600 Output Total 999 400 / 400 Balance 999 3600 / 3600 -400 / -400 Weight 79.379 kg 79.379 kg Intake: IV 1999 NS Inj 1,000 ML @ 125 mls/hr IV 999 .CONT .Q8H MELISSA Rx#:[id number] NS Inj 1,000 ML @ Wide Open IV. 1999 SIG BOLUS ONE Rx#:[id number] Oral 1600 / 1600 Output: Urine 999 400 / 400 Other: # Voids 1 Weight On Admission 79.379 kg Narrative: No tremors, no EPS, no psychomotor agitation or retardation, no withdrawal symptoms, no catatonia, no gait disturbance - Constitutional no acute distress, mild distress - Routine HEENT Exam Head: Present: normocephalic Eye: Present: EOMI, PERRL ENT: Present: mucous membranes moist - Routine Neck Exam Present: supple Mental Status Examination Appearance: Appropriate Consciousness: Alert Orientation: x4 Motor Activity: Normal gait Speech: Unremarkable Language: Adequate Fund of Knowledge: Adequate Attention and Concentration: Adequate Memory: Unremarkable Mood: Appropriate Affect: Appropriate Thought Process & Associations: Intact Thought Content: Appropriate Hallucination Type: None Delusion Type: None Suicidal Ideation: No Suicidal Plan: No Suicidal Intention: No Homicidal Ideation: No Homicidal Plan: No Homicidal Intention: No Insight: Adequate Judgment: Adequate Assessment and Plan - Assessment (1) Alcohol dependence w/alcohol-induced psychotic disorder w/delusions Code(s): F10.250 - Alcohol dependence with alcohol-induced psychotic disorder with delusions Status: Acute (2) Alcohol dependence with alcohol-induced anxiety disorder Code(s): F10.280 - Alcohol dependence with alcohol-induced anxiety disorder Status: Acute - Plan Plan: On my psychiatric evaluation today the patient does not present any neuropsychiatric symptoms are required an immediate psychiatric intervention. The patient denies symptomatology of depression, anxiety, nelson and psychosis. The patient denies suicidal and homicidal ideation, he denies visual and auditory hallucinations. The patient is future oriented, motivated to continue medical recommendations and to be discharged to detox/rehab. The patient is logical, coherent and relevant. There is no current symptoms of withdrawal. But, the patient must be in CIWA protocol. Recent hand marble polisher ingestion was the result of my laxative use of alcohol, and addiction, and no secondary to suicidal attempt or depression. Patient is in the contemplation stage of addiction, ready to action. No admission in psychiatry indicated. Extensive support, motivation, psychoeducation provided. I have advocated with the patient the benefit of increasing BuSpar up to 20 or 30 mg 3 times daily for his anxiety. This is a discussion to have with outpatient provider. Justification for Continued Inpatient Stay: No admission is indicated.
--- NOTE | 2018-11-07 20:43 | ECG ---
Date Performed: 11/06/2018 Time Performed: 14:55:49 PTAGE: 33 years EKG: Sinus rhythm NORMAL ECG INTERPRETATION BASED ON A DEFAULT AGE OF 41 YEARS PREVIOUS TRACING : 08/20/2018 10.50 Since the previous tracing, no significant change not ed DOCTOR: Konrad Wright Interpretating Date/Time 11/07/2018 20:40:55
[2018-11-08] MEDS: Insulin NovoLOG Aspart Correctional Sugar Inj SQ SCH ×2 (07:50→09:28)
[2018-11-08] MEDS: Sod Chloride 0.9% Inj 1,000 ML IV.CONT SCH (07:51)
[2018-11-08 08:59] LABS: Baso # (Auto) 0.1 th/mm3 (0.0-0.2); Baso % (Auto) 1.5 % (0.0-2.0); Eos # (Auto) 0.2 th/mm3 (0.0-0.4); Eos % (Auto) 4.3 % (0.0-4.0); Hematocrit 39.7 % (39.0-51.0); Hemoglobin 13.2 gm/dL (13.0-17.0); Lymph # (Auto) 1.1 th/mm3 (1.0-4.8); Lymph % (Auto) 32.1 % (9.0-44.0); Mean Corpuscular HGB Conc 33.3 % (32.0-36.0); Mean Corpuscular Hemoglobin 29.2 pg (27.0-34.0); Mean Corpuscular Volume 87.6 fL (80.0-100.0); Mean Platelet Volume 6.8 fL (7.0-11.0); Mono # (Auto) 0.3 th/mm3 (0.0-0.9); Mono % (Auto) 7.5 % (0.0-8.0); Neut # (Auto) 1.9 th/mm3 (1.8-7.7); Neut % (Auto) 54.6 % (16.0-70.0); Platelet Count 237 th/mm3 (150-450); Red Blood Count 4.53 mil/mm3 (4.50-5.90); Red Cell Distribution Width 17.7 % (11.6-17.2); White Blood Count 3.6 th/mm3 (4.0-11.0)
[2018-11-08] MEDS: Multivitamin/Minerals Therapeutic Tablet PO SCH (09:29)
[2018-11-08] MEDS: Folic Acid 1 MG Tablet PO SCH (09:29)
[2018-11-08] MEDS: Senna/Docusate Sodium 8.6/50 MG Tablet PO SCH (09:30)
[2018-11-08 09:43] LABS: Albumin 3.5 g/dL (3.4-5.0); Anion Gap 7 meq/L (5-15); Aspartate Aminotransferase 38 U/L (15-37); Blood Urea Nitrogen 3 mg/dL (7-18); Calcium 8.5 mg/dL (8.5-10.1); Carbon Dioxide 27.3 meq/L (21.0-32.0); Chloride 108 meq/L (98-107); Glomerular Filtration Rate Greater Than 89 mL/min (>89); Glucose,Random 119 mg/dL (74-106); Potassium 4.2 meq/L (3.5-5.1); Sodium 142 meq/L (136-145)
[2018-11-08 09:51] LABS: Alanine Aminotransferase 51 U/L (12-78); Alkaline Phosphatase 118 U/L (45-117); Total Protein 6.8 g/dL (6.4-8.2)
--- NOTE | 2018-11-08 10:03 | P.DS ---
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 The patient has been drinking hand toll gate tender steadily since August 26. On 10/01/18 he was hospitalized in delay and where he was admitted to the ICU and underwent dialysis x2 for acidosis. He was discharged to home a few days later and resumed drinking hand toll gate tender. He reports drinking approximately 8-12 ounces daily. Serum alcohol is 380. Gap 10 lactic acid elevated at 3.5. The patient reports severe depression but denies any current suicidal ideation. He denies any chest pain or shortness of breath. No abdominal pain. No nausea/vomiting/diarrhea. No fever/chills. 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 Recommended BMP in 6 hours and if this was within normal limits to repeat BMP in 12 hours. Instructions were followed. Anion gap was normal. Repeat ABG was completed and reviewed. Patient's lactic acid was elevated on admission, however, this normalized and was 1.0 on repeat. Patient was seen in consultation by psychiatry who noted the patient did not present any neuropsychiatric symptoms that required immediate psychiatric intervention. Patient denied any suicidal or homicidal ideation. Patient noted that hand toll gate tender ingestion was as a result of wanting alcohol. Patient states he had made an agreement with his parents to turn over all of his money to them as he had struggled with alcohol use in the past. He then started to use hand toll gate tender to satisfy his alcohol cravings. Psychiatry noted that no inpatient psychiatric admission was indicated. Patient has extensive family support and they have verbalized that they would arrange for patient to go to inpatient rehabilitation facility and case management here spoke with them and was told that a bed was available for patient upon discharge. Psychiatry also advocated with the patient the benefit of increasing BuSpar up to 20 mg or 30 mg 3 times daily for his anxiety and this would have to be discussed with patient's outpatient provider. At time of discharge patient was hemodynamically stable. All questions were answered at the bedside. Time Spent with Patient Total time spent providing and/or coordinating discharge services: Greater than 30 minutes Status at Discharge Functional status at discharge: independent ambulation Overall status at discharge: patient is back to baseline Quality: VTE Deep Vein Thrombosis/Pulmonary Embolism Present on Admission: No Exam Narrative Exam Narrative: Gen: No acute distress, AAOx 3, cooperative Head: Normocephalic. Atraumatic. EENT: Pupils equal round and reactive to light. Nose without drainage. Airway intact. Throat without injection. Cardiovascular: Regular rate and rhythm. No murmurs, rubs or gallops. Respiratory: Lungs clear to auscultation bilaterally. No wheezes or rhonchi. Abdomen: Soft, nontender, nondistended. No peritoneal signs. Musculoskeletal: No gross deformities. No edema. Skin: No obvious rashes or erythema. Neuro: Residual right-sided facial droop and weakness that is baseline. Alert and oriented x4. Results Labs on day of discharge: Labs from last 24 hours 11/08/18 11/08/18 11/08/18 08:42 08:14 08:14 WBC 3.6 L RBC 4.53 Hgb 13.2 Hct 39.7 MCV 87.6 MCH 29.2 MCHC 33.3 RDW 17.7 H Plt Count 237 MPV 6.8 L Neut % (Auto) 54.6 Lymph % (Auto) 32.1 [place] % (Auto) 7.5 Eos % (Auto) 4.3 H Baso % (Auto) 1.5 Neut # (Auto) 1.9 Lymph # (Auto) 1.1 [place] # (Auto) 0.3 Eos # (Auto) 0.2 Baso # (Auto) 0.1 WBC Differential . Differential Comment Auto diff final Sodium 142 Potassium 4.2 Chloride 108 H Carbon Dioxide 27.3 Anion Gap 7 BUN 3 L Creatinine 0.61 Estimated GFR Greater than 89 POC Glucose 119 H Random Glucose 119 H Lactic Acid Calcium 8.5 Total Bilirubin 0.6 AST 38 H ALT 51 Alkaline Phosphatase 118 H Total Protein 6.8 D Albumin 3.5 11/08/18 11/08/18 11/07/18 07:47 05:00 21:21 WBC RBC Hgb Hct MCV MCH MCHC RDW Plt Count MPV Neut % (Auto) Lymph % (Auto) [place] % (Auto) Eos % (Auto) Baso % (Auto) Neut # (Auto) Lymph # (Auto) [place] # (Auto) Eos # (Auto) Baso # (Auto) WBC Differential Differential Comment Sodium Potassium Chloride Carbon Dioxide Anion Gap BUN Creatinine Estimated GFR POC Glucose 119 H 214 H Random Glucose Lactic Acid 1.0 Calcium Total Bilirubin AST ALT Alkaline Phosphatase Total Protein Albumin 11/07/18 11/07/18 11/07/18 18:37 11:30 10:59 WBC RBC Hgb Hct MCV MCH MCHC RDW Plt Count MPV Neut % (Auto) Lymph % (Auto) [place] % (Auto) Eos % (Auto) Baso % (Auto) Neut # (Auto) Lymph # (Auto) [place] # (Auto) Eos # (Auto) Baso # (Auto) WBC Differential Differential Comment Sodium Potassium Chloride Carbon Dioxide Anion Gap BUN Creatinine Estimated GFR POC Glucose 151 H 176 H Random Glucose Lactic Acid 2.1 H Calcium Total Bilirubin AST ALT Alkaline Phosphatase Total Protein Albumin 11/07/18 11/07/18 10:59 10:54 WBC 4.5 RBC 4.17 L Hgb 12.6 L Hct 36.6 L MCV 87.6 MCH 30.2 MCHC 34.4 RDW 17.7 H Plt Count 254 MPV 6.5 L Neut % (Auto) 66.4 Lymph % (Auto) 21.9 [place] % (Auto) 9.3 H Eos % (Auto) 1.9 Baso % (Auto) 0.5 Neut # (Auto) 3.0 Lymph # (Auto) 1.0 [place] # (Auto) 0.4 Eos # (Auto) 0.1 Baso # (Auto) 0.0 WBC Differential . Differential Comment Auto diff final Sodium 142 Potassium 3.5 Chloride 107 Carbon Dioxide 27.2 Anion Gap 8 BUN 3 L Creatinine 0.75 Estimated GFR Greater than 89 POC Glucose Random Glucose 209 H Lactic Acid Calcium 8.1 L Total Bilirubin 0.8 AST 39 H ALT 47 Alkaline Phosphatase 105 Total Protein 6.1 L Albumin 3.2 L Discharge Plan Discharge Disposition Patient Disposition: 01 Discharge Home Discharge Condition Condition: Stable Discharge Order Discharge Orders: Discharge Order (Routine); Ordered 11/08/18 Ordered By: Yumiko Lopez Discharge Details Anticipated Discharge Date: 11/08/18 Physicians Team ED Provider: Sona Stone ED Midlevel Provider: Judy Mcgowan Primary Care Provider: Primary Care Aleksandra Shaw Attending Provider: Karolina Covington Other Providers: Son Maza Rxs /Orders / Referrals /Forms Prescriptions: Continue atorvastatin [Lipitor] 10 mg Tablet 10 mg PO DAILY Qty: 30 RF: 0 sennosides-docusate sodium [Senna Plus] 8.6-50 mg Tablet 1 tab PO BID Qty: 60 RF: 0 buspirone 5 mg Tablet 5 mg PO BID Qty: 60 RF: 0 aspirin 81 mg Tablet,Delayed Release (Dr/Ec) 81 mg PO DAILY Qty: 30 RF: 0 metformin 1,000 mg Tablet 1,000 mg PO DAILY Qty: 30 RF: 0 levetiracetam [Keppra] 750 mg Tablet 750 mg PO BID RF: 0 hydroxyzine pamoate 25 mg Capsule 25 mg PO DAILY RF: 0 Referrals: Marco LOO [Outside] - Call for Appointment (Please follow up in 1 week. on hold for 8 minutes. Have patient call for appt.) Primary Care Aleksandra Shaw [Primary Care Provider] - See Instructions (Follow up with provider of your choice in 1 week. ) Discharge Instructions Patient Printed Instructions: Abuse of Alcohol (DC), Alcohol Withdrawal (DC) Additional Instructions: Your Health Problems: Goals to Promote Your Health: * To prevent worsening of your condition * To maintain your health at the optimal level Directions to Meet Your Goals: * Take your medications as prescribed * Follow your dietary instruction * Follow activity as directed * Keep your appointments as scheduled * Take your immunizations and boosters as scheduled * If your symptoms worsen call your PCP * If no PCP go to Urgent Care or Emergency Room Smoking is dangerous to your health. Avoid second hand smoke. You may reach the 24-hour crisis hotline for domestic abuse at . Post Discharge Care Plan Care Plan Goals: Your Health Problems: Goals to Promote Your Health: * To prevent worsening of your condition * To maintain your health at the optimal level Directions to Meet Your Goals: * Take your medications as prescribed * Follow your dietary instruction * Follow activity as directed * Keep your appointments as scheduled * Take your immunizations and boosters as scheduled * If your symptoms worsen call your PCP * If no PCP go to Urgent Care or Emergency Room Smoking is dangerous to your health. Avoid second hand smoke. You may reach the 24-hour crisis hotline for domestic abuse at . Status ED Status: Left Department Discharge Information Discharge Date/Time: 11/08/18 11:59
== END 2018-11-08 11:59 | disposition home or self-care (01) ==
LOC: NEPC 14:32 → NEDA 14:32 → NEPFCDU 21:03
PROVIDERS: ADMIT Family Medicine; ATTEND Family Medicine
DX: Z56.0 Unemployment, unspecified; Z79.82 Long term (current) use of aspirin; Z81.8 Family history of other mental and behavioral disorders; F10.280 Alcohol dependence with alcohol-induced anxiety disorder; I69.30 Unspecified sequelae of cerebral infarction; F32.9 Major depressive disorder, single episode, unspecified; F17.210 Nicotine dependence, cigarettes, uncomplicated; Z79.84 Long term (current) use of oral hypoglycemic drugs; Z79.899 Other long term (current) drug therapy; Y90.8 Blood alcohol level of 240 mg/100 ml or more; I10 Essential (primary) hypertension; Z83.3 Family history of diabetes mellitus; F10.250 Alcohol dependence with alcohol-induced psychotic disorder with delusions; Z98.84 Bariatric surgery status; F41.9 Anxiety disorder, unspecified; E11.9 Type 2 diabetes mellitus without complications; G81.91 Hemiplegia, unspecified affecting right dominant side; Z82.49 Family history of ischemic heart disease and other diseases of the circulatory system
CPT/HCPCS: 36600; 80053; 80307; 81001; 82805; 82948; 82962; 83605; 83735; 84443; 85025; 85610; 85730; 90760; 90761; 93005; 96360; 96361; 96372; 99285; G0378; J1815; J7030